=== PATIENT | male | born 1985 | race Hispanic/Latino ===

== ENCOUNTER 2020-02-11 21:33 | Emergency (ER) | payer OTHER, SELFPAY ==
[2020-02-11 22:00] VITALS: BP 187/63; PULSE 86; RESP 16; TEMP 36.9; O2SAT 98
--- NOTE | 2020-02-11 22:09 | ED.WOUNDLAC ---
HPI - Wound/Laceration General Chief Complaint: Wound/Laceration Stated Complaint: cut on arm Source: patient History of Present Illness HPI narrative: patient presents after he cut himself while at home with a superficial non gaping cut to his left elbow area. Occurred earlier today is up-to-date with his tetanus currently there is no bleeding no warmth no tenderness. Onset (ago): hour(s) Extremity Location: Left: elbow ( superficial cut) Place: home Context: accidental Associated symptoms: none Related Data Home Medications Medication Instructions Recorded Confirmed No Home Medications 07/18/19 07/18/19 Allergies Allergy/AdvReac Type Severity Reaction Status Date / Time No Known Allergies Allergy Verified 07/18/19 08:33 Review of Systems Review of Systems: All systems reviewed & are unremarkable except as noted in HPI and below PMFSH Past Medical History Medical History Lumbago with sciatica Skin abscess Syncope Surgical History Surgical History Hx of cholecystectomy Exam Const: General: no acute distress Orientation/consciousness: patient oriented x3 HENMT: Head: normal to inspection Eyes: Conjunctivae: conjunctivae normal Pupils: Equal, round and reactive pupils present EOM: EOMs intact bilaterally Neck: Neck: normal visual inspection Chest: Chest palpation & inspection: normal inspection of the chest Resp: Effort & Inspection: normal respiratory effort Auscultation: clear to auscultation bilaterally Cardio: Rate: regular rate Rhythm: regular rhythm GI: GI Palp: Yes Soft to palpation Auscultation: normal bowel sounds Back/Spine/Pelvis: Back: no CVA tenderness Skin: Other: Superficial cut on the left elbow Neuro: General: patient oriented x3 Extrem: General: normal to inspection Psych: Mental Status: mental status grossly normal Course Course Emergency Course: patient up-to-date with his tetanus patient is now need sutures were placed Neosporin on the cut area of his left elbow. Critical Care Time Critical Care Time Critical Care Time: No Discharge Plan Discharge Clinical Impression: Abrasion Patient Disposition: Home, Self-Care Condition: Stable Instructions: Antibiotic Form, Skin Avulsion (ED) Additional Instructions: Can apply Neosporin daily x3 days, follow-up with primary care physician if symptoms persist or worsen. Prescriptions: No Action No Home Medications RF: 0 Follow-up/Referrals: Noe Bearden MD [Primary Care Provider] - Time of Disposition: 22:11
[2020-02-11 22:31] VITALS: BP 141/85; PULSE 94; RESP 18; O2SAT 96
== END 2020-02-11 22:32 | disposition home or self-care (01) ==
PROVIDERS: Emergency Provider Emergency Medicine; PCP Family Medicine
DX: S50.312A Abrasion of left elbow, initial encounter (principal); W45.8XXA Other foreign body or object entering through skin, initial encounter
CPT/HCPCS: 99282

== ENCOUNTER 2020-04-16 13:18 | Emergency (ER) | payer OTHER, SELFPAY ==
--- NOTE | ~2020-04-16 | CT_ITS ---
EXAMINATION: CT hip LT wo con EXAM DATE: 04/16/2020 15:10 INDICATION: Left hip pain after fall. Pain with weightbearing. TECHNIQUE: Spiral CT hip LT wo con was performed left hip Axial, coronal and sagittal images were re viewed. The dose-length product (DLP) for this examination was 546.09 mGy-cm. The exposure was tail ored according to patient size (auto mA exposure control), and iterative reconstruction (ASIR) was us ed as additional dose reduction technique. There is no prior study for comparison. FINDINGS: There are no acute left hip fractures or dislocations identified. There is no subcutaneous gas. The soft tissue is unremarkable. There are no radiopaque foreign bodies. IMPRESSION: 1. Left hip CT exam without acute osseous findings. Reviewed, dictated and finalized at location B. EL ENGINE MECHANIC
--- NOTE | ~2020-04-16 | CT_ITS ---
EXAMINATION: CT lumbar spine wo [facility] EXAM DATE: 04/16/2020 15:10 INDICATION: fall, left hip pain fall last night, LBP, hip pain . TECHNIQUE: Spiral CT lumbar spine was performed without contrast. Axial, coronal and sagittal images of the lumbar spine were reviewed. The dose-length product (DLP) for this examination was 546.09 mGy- cm. The exposure was tailored according to patient size (auto mA exposure control), and iterative re construction (ASIR) was used as additional dose reduction technique. There is no prior study for jose thompson. FINDINGS: Mild to moderate disc disease L3-S1. There is no evidence of acute lumbar fracture. There is no disc space widening or traumatic vertebral body subluxation suspected. Paraspinal soft tissue is unremar kable. Mild to moderate right neural foraminal stenosis L4-5, less at the other number levels. The re is 2 mm retrolisthesis L4 on L5. The vertebral bodies are otherwise aligned. A detailed level by level evaluation of spondylosis can be added as addendum if requested. IMPRESSION: 1. Mild to moderate lower lumbar spondylosis. 2. No acute findings. Reviewed, dictated and finalized at location B. OR INSPECTOR
[2020-04-16 13:25] VITALS: BP 130/78; PULSE 100; RESP 20; TEMP 36.2; O2SAT 97
[2020-04-16] MEDS: ONDANSETRON INJ 4 MG/2 ML VIAL IV PUSH (13:50)
[2020-04-16] MEDS: HYDROmorphone HCL INJ (*CRX) 2 MG/ML VIAL 0.5 MG IV PUSH ×2 (13:50→14:09)
--- NOTE | 2020-04-16 13:54 | ED.LOWEXIN ---
HPI - Extremity Injury (Lower) General Chief Complaint: Extremity Injury, Lower Stated Complaint: felt 3 pops in left hip severe pain Time Seen by Provider: 04/16/20 13:54 Source: patient Mode of arrival: ambulatory Limitations: no limitations History of Present Illness HPI Narrative: 35-year-old man comes in today complaining of left hip pain particularly with weight-bearing that started yesterday. He was helping a neighbor with the door and to his ankle on the threshold causing him to fall. He states he felt 3 pops in addition to pain in his left hip. He has had pain with ambulation that is gotten worse over the last 24 hours. He denies any numbness or tingling except over the left lateral hip. He denies prior similar symptoms and he denies any other injuries. States he has a great deal of difficulty getting from a sitting to a standing position. MD complaint: hip injury Onset (ago): day(s) (1) Injury: Left: hip Type of Injury: unknown Place: home Severity: severe Relieving factors: nothing Exacerbating factors: weight bearing, movement and palpation Context: walking Associated symptoms: snap/pop sensation, numbness and able to partially bear weight Other symptoms: none Related Data Allergies Allergy/AdvReac Type Severity Reaction Status Date / Time No Known Allergies Allergy Verified 07/18/19 08:33 Review of Systems Constitutional: Constitutional: Denies chills and Denies fever(s) Eyes: Eyes: Denies change in vision and Denies photophobia ENT: Denies dysphagia, Denies nasal congestion and Denies sore throat Cardiovascular: Cardiovascular: Denies chest pain and Denies radiating jaw, neck or arm pain Respiratory: Respiratory: Denies cough and Denies dyspnea Gastrointestinal: Gastrointestinal: Denies abdominal pain, Denies diarrhea, Denies nausea and Denies vomiting Genitourinary: Genitourinary: Denies dysuria and Denies urinary frequency Musculoskeletal: Musculoskeletal: Denies back pain, Reports arthralgias and Denies joint swelling Integumentary/Breasts: Skin/Breast: Denies pruritus and Denies rash Neurologic: Denies vertigo, Denies dizziness and Denies syncope Hematologic/Lymphatic: Hematologic/Lymphatic: Denies easy bleeding and Denies easy bruising Allergic/Immunologic: Allergic/Immunologic: Denies lip swelling and Denies tongue swelling [facility] Past Medical History Medical History (Updated 04/16/20 @ 15:26 by Wily Bush MD) Lumbago with sciatica Skin abscess Syncope Surgical History Surgical History Hx of cholecystectomy Social History Social History (Updated 04/16/20 @ 14:29 by Wily Bush MD) Smoking status: Current every day smoker Alcohol intake: never Substance use: current Substance use type: marijuana Living arrangements: with family Exam Const: General: healthy appearing and alert Nutritional Appearance: obese Orientation/consciousness: patient oriented x3 Other: Moderate to severe acute distress. Eyes: Conjunctivae: conjunctivae normal Pupils: Equal, round and reactive pupils present EOM: EOMs intact bilaterally Resp: Effort & Inspection: normal respiratory effort and not labored Auscultation: clear to auscultation bilaterally, no rales, no rhonchi and no wheezes Cardio: Rate: regular rate Rhythm: regular rhythm Heart sounds: no murmurs Skin: General skin exam: normal color, no jaundice and no pallor Rashes: no rashes Neuro: General: patient oriented x3, moves all extremities, no focal motor deficits and CN's II-XI intact bilaterally Speech: normal speech Extrem: General: normal to inspection and no clubbing, cyanosis or edema Other: Patient has pain with internal external rotation left hip. Patient is unable to flex it. No tenderness, swelling or erythema of the left knee, left ankle and the distal neurovascular exam is intact on left. Right leg hip and knee is normal. Psych:
[2020-04-16 15:01] VITALS: BP 135/74; PULSE 89; RESP 20; O2SAT 98
[2020-04-16 15:29] VITALS: BP 121/67; PULSE 97; RESP 18; TEMP 36.9; O2SAT 98
== END 2020-04-16 15:34 | disposition home or self-care (01) ==
PROVIDERS: Emergency Provider Emergency Medicine; PCP Nurse Practitioner Family
DX: S76.812A Strain of other specified muscles, fascia and tendons at thigh level, left thigh, initial encounter (principal); W19.XXXA Unspecified fall, initial encounter
CPT/HCPCS: 72131; 73700; 96374; 96375; 99283; 99284; J1170; J2405

== ENCOUNTER 2020-04-20 18:11 | Observation (INO) | payer OTHER, SELFPAY ==
--- NOTE | ~2020-04-20 | CT_ITS ---
EXAMINATION: CT abdomen pelvis w con DATE: 04/20/2020 19:45 INDICATION: Mid abdominal pain. TECHNIQUE: Computed tomography (CT) of the abdomen and pelvis was performed with 100 mL Omnipaque 350 on intravenous contrast. Automated exposure control and iterative reconstruction technique were empl oyed. The dose-length product was 1571.78 mGy-cm. COMPARISON: CT abdomen and pelvis 03/12/2019 FINDINGS: The visualized portions of the lung bases demonstrate mild atelectasis. No pleural effusion . The heart size is normal. No pericardial effusion. The liver and spleen are normal. There are márquez es of cholecystectomy. The pancreas and adrenal glands are normal. There are cysts in the kidneys jacqueline suring up to 9 mm on the left. There are no dilated loops of bowel. The appendix is normal. There are no pathologically enlarged lymph nodes. There is no free intraperitoneal fluid. There is a supraumbi lical ventral hernia containing fat. There is mild thoracolumbar spondylosis. IMPRESSION: 1. Supraumbilical ventral hernia containing fat. Reviewed, dictated and finalized at location A. [employer] SPECIAL AGENT
[2020-04-20 18:15] VITALS: BP 125/78; PULSE 83; RESP 17; TEMP 36.9; O2SAT 98
[2020-04-20] MEDS: HYDROmorphone HCL INJ (*CRX) 2 MG/ML VIAL 1 MG IV PUSH (18:24)
[2020-04-20] MEDS: ONDANSETRON INJ 4 MG/2 ML VIAL IV PUSH (18:25)
[2020-04-20 18:39] LABS: Add Urine Microscopic? YES; Appearance Urine Clear (Clear); Bilirubin Urine Negative (Negative); Blood Urine Negative (Negative); Color Urine Yellow (Yellow); Glucose Urine UA Negative (Negative); Ketones Urine Negative (Negative); Leukocyte Esterase Ur Negative LEU/UL (Negative); Nitrate Urine Negative (Negative); Protein Urine Trace (Negative); Urobilinogen Urine 0.2 mg/dL (0.2-1.0); pH Urine >=9.0 (5.0-8.0)
[2020-04-20 19:04] LABS: Basophils Absolute Auto 0.03 K/mm3 (0.00-0.10); Basophils Percent Auto 0.3 % (0.0-1.0); Eosinophils Absolute Auto 0.08 K/mm3 (0.02-0.50); Eosinophils Percent Auto 0.8 % (1.0-6.0); Hematocrit 47.5 % (40.0-54.0); Hemoglobin 15.8 g/dL (14.0-18.0); Immature Granulocyte Absolute 0.04 K/mm3 (0.00-0.00); Immature Granulocyte Percent A 0.4 % (0.0-0.0); Lymphocytes Absolute Auto 1.67 K/mm3 (1.10-4.50); Lymphocytes Percent Auto 17.4 % (18.0-42.0); Mean Corpuscular HGB Conc 33.3 g/dL (32.0-36.0); Mean Corpuscular Hemoglobin 29.7 pg (27.0-31.0); Mean Corpuscular Volume 89.3 fL (78.0-102.0); Mean Platelet Volume 10.3 fl (8.7-11.0); Monocytes Percent Auto 5.2 % (2.0-11.0); Neutrophils Absolute Auto 7.3 K/mm3 (1.7-7.2); Neutrophils Percent Auto 75.9 % (50.0-70.0); Platelet Count Result 320 K/mm3 (150-420); Red Blood Count 5.32 M/mm3 (4.70-6.10); White Blood Count 9.6 K/mm3 (4.8-10.8)
[2020-04-20 19:05] LABS: Bacteria Urine Trace /hpf; RBC Urine 0-2 /hpf (0-2); Squamous Epithelial Cell Urine Rare /hpf (Few); WBC Urine 0-3 /hpf (0-3)
[2020-04-20] MEDS: PROMETHAZINE HCL 25 MG/ML AMPUL 12.5 MG IV PUSH (19:05)
[2020-04-20 19:21] LABS: Alanine Aminotransferase 58 U/L (16-63); Albumin Level 3.5 g/dL (3.4-5.0); Alkaline Phosphatase 104 U/L (46-116); Amylase 35 U/L (25-115); Anion Gap 9 mmol/L (8-16); Aspartate Amino Transferase 25 U/L (15-37); Bilirubin,Total 0.4 mg/dL (0.00-1.00); Blood Urea Nitrogen 12 mg/dL (7-18); Calcium 8.8 mg/dL (8.5-10.1); Carbon Dioxide 29 mmol/L (21-32); Chloride 103 mmol/L (98-108); Estimated Glomerular Filt Rate > 60; Glucose 101 mg/dL (70-99); Lipase 49 U/L (73-393); Osmolality Calculated 291 mOsm/kg (285-295); Potassium 3.5 mmol/L (3.5-5.1); Sodium 141 mmol/L (136-145); Total Protein 7.3 g/dL (6.4-8.2)
[2020-04-20] MEDS: KETOROLAC 30 MG/ML VIAL (*BKC) IV PUSH ×2 (19:50→23:37)
[2020-04-20] MEDS: MAG HYDROX/ALUMINUM HYD/SIMETH 30 ML, PHENobarb/HYOSCY/ATROPINE/SCOP 32.4 MG, LIDOCAINE... PO (20:30)
[2020-04-20] MEDS: DICYCLOMINE HCL 10 MG CAPSULE 20 MG PO (20:59)
--- NOTE | 2020-04-20 21:00 | PC.NURSE ---
ERP TO BEDSIDE TO DISCUSS NEGATIVE FINDINGS - PT SUGGESTS HE STILL BE TRANSFERRED TO [facility]
[2020-04-20 21:06] LABS: Amphetamine Screen Urine Negative (Negative); Barbiturate Screen Urine Negative (Negative); Benzodiazepines Screen Urine Negative (Negative); Cannabinoid Screen Urine Positive (Negative); Cocaine Screen Urine Negative (Negative); Methadone Screen Urine Negative (Negative); Opiate Screen Urine Positive (Negative); Phencyclidine Screen Urine Negative (Negative)
--- NOTE | 2020-04-20 21:46 | ED.ABDPAIN ---
HPI - Abdominal Pain General Chief Complaint: Abdominal Pain Stated Complaint: unknown Source: patient and family Mode of arrival: ambulatory Limitations: no limitations History of Present Illness MD elicited complaint: abdominal pain Pertinent past history: other (episodes like this in t he past, which he insists were due to pancreatitis ) Onset (ago): day(s) (3) Pain Consistency: intermittent Location: diffuse Severity: similar to previous episodes Pain scale (0-10): 10 Quality: cramping Radiation: none Exacerbating factors: other (walking makes this worse) Relieving factors: rest Treatments prior to arrival: other (cannabis) Related Data Home Medications Medication Instructions Recorded Confirmed No Home Medications 04/20/20 04/20/20 Allergies Allergy/AdvReac Type Severity Reaction Status Date / Time No Known Allergies Allergy Verified 07/18/19 08:33 Review of Systems Review of Systems: All systems reviewed & are unremarkable except as noted in HPI and below Constitutional: Constitutional: Reports no additional constitutional complaints Eyes: Eyes: Reports no additional eye complaints ENT: Reports system reviewed and no additional complaints, except as documented Cardiovascular: Cardiovascular: Reports no additional cardiovascular complaints Respiratory: Respiratory: Reports no additional respiratory complaints Gastrointestinal: Gastrointestinal: Reports no additional gastrointestinal complaints Genitourinary: Genitourinary: Reports no additional male genitourinary complaints Musculoskeletal: Musculoskeletal: Reports no additional musculoskeletal complaints Integumentary/Breasts: Skin/Breast: Reports system reviewed and no additional complaints, except as docu Neurologic: Reports system reviewed and no additional complaints, except as documented Psychiatric: Psychiatric: Reports no additional psychiatric complaints Endocrine: Endocrine: Reports no additional endocrine complaints Hematologic/Lymphatic: Hematologic/Lymphatic: Reports no additional hematologic/lymphatic complaints Allergic/Immunologic: Allergic/Immunologic: Reports no additional allergic/immunologic complaints [facility] Past Medical History Medical History (Updated 04/20/20 @ 22:45 by Rufino Hernández MD) Lumbago with sciatica Skin abscess Syncope Surgical History Surgical History Hx of cholecystectomy Family History Family History (Updated 04/20/20 @ 22:35 by Rufino Hernández MD) Mother COPD (chronic obstructive pulmonary disease) Social History Social History (Updated 04/16/20 @ 14:29 by Wily Bush MD) Smoking packs per day: 1 Smoking cigarettes per day: 20.0 Years smoked: 20 Smoking pack-years: 20.00 Smoking status: Heavy tobacco smoker Tobacco type: cigarettes Alcohol intake: former Substance use: current Substance use type: marijuana Gender identity (if verbalized by the patient): Male Sexual Orientation (if Verbalized by the Patient): Straight or Heterosexual Spiritual care concerns: No Exam Narrative: Exam Narrative: appears uncomfortable Const: General: no acute distress HENMT: Head: normal to inspection Face and sinus: normal facial exam Eyes: Conjunctivae: conjunctivae normal Chest: Chest palpation & inspection: normal inspection of the chest Resp: Effort & Inspection: normal respiratory effort Auscultation: clear to auscultation bilaterally Cardio: Rate: regular rate Rhythm: regular rhythm GI: GI Palp: Yes Soft to palpation Other: mild tenderness to percussion in left upper abcomen Back/Spine/Pelvis: Back: no CVA tenderness Skin: General skin exam: normal color Neuro: General: moves all extremities Speech: normal speech Extrem: General: normal to inspection Psych: Appearance: grossly normal Mental Status: mental status grossly normal Thought content: Yes Normal thought content present Cour
[2020-04-20 22:20] VITALS: BP 102/56; PULSE 87; O2SAT 96
[2020-04-20 22:35] VITALS: BP 104/72; PULSE 70; RESP 14; TEMP 36.4; O2SAT 100
[2020-04-20 22:41] VITALS: BMI 42.3
--- NOTE | 2020-04-20 22:44 | ADMIMU ---
This patient, Mitesh Jerome, was admitted to IMU status, and placed in 2nd Floor Room 227-1. Patient/family oriented to hospital policies and general routines including ID bracelet, bed and alarms, visiting hours, pain management, procedures, bathroom and other care routines, personal items, smoking policy, room service/diet, and visiting hours. Valuables list has been completed. Information on how to activate the Rapid Response Team has been discussed. Patient/Family are encouraged to report perceived risks to care and to ask questions if they do not understand what they are told or what they should do.
[2020-04-20] MEDS: SODIUM CHLORIDE 0.9% IV 1,000 ML 100 ML IV CONT (23:20)
[2020-04-20] MEDS: PANTOPRAZOLE SODIUM IV 40 MG VIAL IV PUSH (23:37)
--- NOTE | 2020-04-20 23:45 | PC.NURSE ---
administered IVP protonix and toradol as order. fluids running. no emesis.
--- NOTE | 2020-04-21 00:50 | PC.NURSE ---
Patient resting. Snoring. Call light in reach. Pain level 0 on FLACC.
--- NOTE | 2020-04-21 02:45 | PC.NURSE ---
Patient appears to be resting. no nausea or emesis. Pain 0 on FLACC.
--- NOTE | 2020-04-21 03:45 | PC.NURSE ---
Patient resting. pump sounding with occlusion-patient still sleeping had to wake to reposition IV no nausea or emesis. pain rated at 6
[2020-04-21] MEDS: KETOROLAC 30 MG/ML VIAL (*BKC) IV PUSH ×4 (05:39→23:58)
--- NOTE | 2020-04-21 05:56 | PC.NURSE ---
Scheduled toradol given. denies nausea.
[2020-04-21 06:00] VITALS: BP 123/77; PULSE 57; RESP 14; TEMP 36.5; O2SAT 100
[2020-04-21 06:30] LABS: Anion Gap 6 mmol/L (8-16); Blood Urea Nitrogen 14 mg/dL (7-18); Calcium 8.7 mg/dL (8.5-10.1); Carbon Dioxide 32 mmol/L (21-32); Chloride 104 mmol/L (98-108); Estimated CRCL calculation 143 ml/min; Estimated Glomerular Filt Rate > 60; Glucose 93 mg/dL (70-99); Osmolality Calculated 294 mOsm/kg (285-295); Potassium 3.8 mmol/L (3.5-5.1); Sodium 142 mmol/L (136-145)
--- NOTE | 2020-04-21 07:32 | PM.IMHP ---
H&P: HPI History of Present Illness Date/Time: 04/21/20 07:32 <JUAN Hough - Last Filed: 04/21/20 14:02> Chief complaint: Cyclic Vomiting syndrome/Cannabis Hyperemesis Synd <JUAN Hough - Last Filed: 04/21/20 14:02> Narrative: Mitesh Jerome is a 35 year old male who states that he has pancreatitis in the past. He states pancreatitis is triggered by spicy food and admits that over the weekend from he was enjoying some meals that had increased spices in them. This morning patient complains of epigastric pain left upper quadrant pain and the need to vomit which resulted in just dry heaves. ER report says patient was given Dilaudid which did nothing for the patient's pain however Toradol did work. Patient does find some relief with his nausea medication. Patient denies any chest pain difficulty breathing at this time. <JUAN Hough - Last Filed: 04/21/20 14:02> Review of Systems Constitutional: Constitutional: Reports no additional constitutional complaints and Reports other (patient admits to smoking marijuana daily) <JUAN Hough - Last Filed: 04/21/20 14:02> Cardiovascular: Cardiovascular: Reports no additional cardiovascular complaints, Denies chest pain at rest and Denies chest pain with activity <JUAN Hough - Last Filed: 04/21/20 14:02> Respiratory: Respiratory: Reports no additional respiratory complaints, Denies dyspnea and Denies dyspnea on exertion <JUAN Hough - Last Filed: 04/21/20 14:02> Gastrointestinal: Gastrointestinal: Reports abdominal pain (Epigastric to left upper quadrant) and Reports nausea <JUAN Hough - Last Filed: 04/21/20 14:02> Neurologic: Reports system reviewed and no additional complaints, except as documented, Denies dizziness, Denies syncope, Denies headache(s) and Denies lack of coordination <JUAN Hough - Last Filed: 04/21/20 14:02> PMFSH Past Medical History Medical History: Medical History Lumbago with sciatica Skin abscess Syncope <JUAN Hough - Last Filed: 04/21/20 14:02> Surgical History Surgical History: Surgical History Hx of cholecystectomy <JUAN Hough - Last Filed: 04/21/20 14:02> Family History Family History: Family History Mother COPD (chronic obstructive pulmonary disease) <JUAN Hough - Last Filed: 04/21/20 14:02> Social History Social History: Social History Smoking packs per day: 1 Smoking cigarettes per day: 20.0 Years smoked: 20 Smoking pack-years: 20.00 Smoking status: Heavy tobacco smoker Tobacco type: cigarettes Alcohol intake: former Substance use: current Substance use type: marijuana Gender identity (if verbalized by the patient): Male Sexual Orientation (if Verbalized by the Patient): Straight or Heterosexual Spiritual care concerns: No <JUAN Hough - Last Filed: 04/21/20 14:02> Meds Home Medications and Allergies Home medications: Home Medications Medication Instructions Recorded Confirmed Type No Home Medications 04/20/20 04/20/20 History <JUAN Hough - Last Filed: 04/21/20 14:02> Allergies/Adverse reactions: Allergies Allergy/AdvReac Type Severity Reaction Status Date / Time No Known Allergies Allergy Verified 07/18/19 08:33 <JUAN Hough - Last Filed: 04/21/20 14:02> Vital Signs Vital Signs - 24 hr 04/20/20 18:15 04/20/20 22:20 04/20/20 22:35 Temperature 98.5 F 97.6 F Pulse Rate 83 87 70 Respiratory Rate 17 14 Blood Pressure 125/78 102/56 L 104/72 Pulse Oximetry 98 96 100 04/21/20 06:00 Temperature 97.7 F Pulse Rate 57 L Respiratory Rate
[2020-04-21] MEDS: ONDANSETRON INJ 4 MG/2 ML VIAL IV PUSH ×3 (08:24→21:53)
[2020-04-21] MEDS: HYDROmorphone HCL INJ (*CRX) 2 MG/ML VIAL 0.5 MG IV PUSH (09:26)
[2020-04-21] MEDS: PROMETHAZINE HCL 25 MG/ML AMPUL 12.5 MG IV PUSH ×2 (12:11→18:27)
--- NOTE | 2020-04-21 12:15 | PC.NURSE ---
Phenergan 12.5 mg given diluted for nausea, no emesis noted
[2020-04-21 14:00] VITALS: BP 106/66; PULSE 72; RESP 14; TEMP 36.6; O2SAT 99
--- NOTE | 2020-04-21 14:08 | PC.NURSE ---
Patient getting short time relief from pain med and nausea med. SEE JUL. IV fluids continue as ordered. Reports voiding well. Sleeping off and between meds given. Didn't eat any of his clear liquid lunch.
[2020-04-21 16:15] VITALS: BP 141/86; PULSE 59; RESP 18; TEMP 36.8; O2SAT 98
[2020-04-21] MEDS: PANTOPRAZOLE 40 MG TABLET PO (18:27)
--- NOTE | 2020-04-21 19:33 | PM.EVENT ---
Event Note Event Note Event Note: I have examined the patient and reviewed the chart. I discussed the patient's care with Davian Winn APN and agree with his assessment and plan.
[2020-04-21] MEDS: SODIUM CHLORIDE 0.9% IV 1,000 ML 100 ML IV CONT (19:48)
[2020-04-22] VITALS: BP 119/69; PULSE 77; RESP 18; TEMP 36.9; O2SAT 98
[2020-04-22] MEDS: ONDANSETRON INJ 4 MG/2 ML VIAL IV PUSH ×2 (00:01→06:01)
--- NOTE | 2020-04-22 02:35 | PC.NURSE ---
pt sleeping, no distress noted, iv fluids infusing per order
[2020-04-22] MEDS: SODIUM CHLORIDE 0.9% IV 1,000 ML 100 ML IV CONT (05:59)
[2020-04-22] MEDS: KETOROLAC 30 MG/ML VIAL (*BKC) IV PUSH (06:00)
[2020-04-22 06:03] LABS: Basophils Absolute Auto 0.02 K/mm3 (0.00-0.10); Basophils Percent Auto 0.3 % (0.0-1.0); Eosinophils Percent Auto 1.5 % (1.0-6.0); Hematocrit 44.5 % (40.0-54.0); Hemoglobin 14.5 g/dL (14.0-18.0); Immature Granulocyte Absolute 0.03 K/mm3 (0.00-0.00); Immature Granulocyte Percent A 0.4 % (0.0-0.0); Lymphocytes Percent Auto 29.2 % (18.0-42.0); Mean Corpuscular HGB Conc 32.6 g/dL (32.0-36.0); Mean Platelet Volume 10.1 fl (8.7-11.0); Monocytes Absolute Auto 0.55 K/mm3 (0.10-0.90); Neutrophils Absolute Auto 4.2 K/mm3 (1.7-7.2); Neutrophils Percent Auto 60.6 % (50.0-70.0); Platelet Count Result 303 K/mm3 (150-420); Red Cell Distribution Width 12.7 % (11.6-14.4); White Blood Count 6.9 K/mm3 (4.8-10.8)
[2020-04-22 06:19] LABS: Alanine Aminotransferase 71 U/L (16-63); Albumin Level 3.2 g/dL (3.4-5.0); Alkaline Phosphatase 104 U/L (46-116); Anion Gap 7 mmol/L (8-16); Aspartate Amino Transferase 27 U/L (15-37); Bilirubin,Total 0.7 mg/dL (0.00-1.00); Blood Urea Nitrogen 11 mg/dL (7-18); Calcium 8.5 mg/dL (8.5-10.1); Carbon Dioxide 30 mmol/L (21-32); Chloride 103 mmol/L (98-108); Estimated CRCL calculation 151 ml/min; Estimated Glomerular Filt Rate > 60; Glucose 92 mg/dL (70-99); Lipase 296 U/L (73-393); Osmolality Calculated 289 mOsm/kg (285-295); Potassium 3.7 mmol/L (3.5-5.1); Sodium 140 mmol/L (136-145); Total Protein 6.8 g/dL (6.4-8.2)
[2020-04-22 07:45] VITALS: BP 119/67; PULSE 65; RESP 18; TEMP 36.2; O2SAT 94
--- NOTE | 2020-04-22 10:44 | P.DS_ITS ---
DS: Admitting Diagnosis Admitting Diagnosis Admitting Diagnosis: Cyclic Vomiting syndrome/Cannabis Hyperemesis Synd <Jarrell MattaKEILY Valente - Last Filed: 04/22/20 10:53> DS: Discharge Diagnosis Discharge Diagnosis (1) Cannabis hyperemesis syndrome concurrent with and due to cannabis abuse: Code(s): F12.188 - Cannabis abuse with other cannabis-induced disorder <Mikejeanne SigridKEILY Valente - Last Filed: 04/22/20 10:53> Status: Acute <Jarrell MattaKEILY Valente - Last Filed: 04/22/20 10:53> Assessment and Plan: * Result * Patient able to tolerate meals * Will discharge home with Zofran and Reglan * Will follow her primary care physician * Educated on cessation <KEILY Mcmahon - Last Filed: 04/22/20 10:53> (2) Nausea and vomiting: Code(s): R11.2 - Nausea with vomiting, unspecified <KEILY Mcmahon - Last Filed: 04/22/20 10:53> Status: Acute <Mikejeanne MattaKEILY Valente - Last Filed: 04/22/20 10:53> Assessment and Plan: * Resolved * Secondary to cannabis use * Discharged home with Zofran and Reglan <KEILY Mcmahon - Last Filed: 04/22/20 10:53> (3) Addiction, marijuana: Code(s): F12.20 - Cannabis dependence, uncomplicated <Mikejeanne SigridKEILY Valente - Last Filed: 04/22/20 10:53> Status: Acute <Jarrell SigridKEILY Valente - Last Filed: 04/22/20 10:53> Assessment and Plan: * Educated on cessation <KEILY Mcmahon - Last Filed: 04/22/20 10:53> (4) Dehydration: Code(s): E86.0 - Dehydration <Jarrell SigridKEILY Valente - Last Filed: 04/22/20 10:53> Status: Acute <KEILY Mcmahon - Last Filed: 04/22/20 10:53> Assessment and Plan: * Secondary to nausea and vomiting * Resolved * Patient received IV fluids while inpatient <Jarrell MeredithKEILY - Last Filed: 04/22/20 10:53> DS: Summary Time Spent with Patient Time attestation: Total time spent providing and/or coordinating discharge services:60 <Jarrell MeredithKEILY - Last Filed: 04/22/20 10:53> Exam Narrative: Exam Narrative: GENERAL: This is a well-nourished, well-developed patient, in no apparent distress. HEAD: normocephalic, atraumatic. EYES: PERRL. Sclera clear/white. Vision is grossly intact. EARS: External ears normal, auditory canals clear and without drainage, TMs normal without perforation. Hearing grossly intact. NOSE: External nose normal with no obvious nasal discharge, nares without redness, no rhinorrhea. THROAT: Mucous membranes moist, posterior pharynx clear. NECK: Neck supple, non-tender without lymphadenopathy, masses or thyromegaly. CARDIOVASCULAR: Regular rate and rhythm without murmurs, gallops, or rubs. RESPIRATORY: Clear to auscultation. Breath sounds equal bilaterally. No wheezes, rales, or rhonchi. GASTROINTESTINAL: Abdomen soft, non-tender, nondistended. Bowel sounds are active. No hepato-splenomegaly, or palpable masses. No guarding. SKIN: warm, intact with no suspicious lesions or rash, good texture and turgor. NEURO: awake, alert, and oriented to person, place and time. There were no obvious focal neurologic abnormalities. Steady gait EXTREMITIES: Normal range of motion. No edema. No calf tenderness. Negative Homans sign bilaterally. BACK: Nontender without deformity or crepitance. No flank tenderness. <Jarrell MeredithKEILY - Last Filed: 04/22/20 10:53> DS: Data Data Completed and Pending Labs on day of discharge: Labs from last 24 hours 04/22/20 04/22/20
--- NOTE | 2020-04-22 10:44 | PM.DS ---
DS: Admitting Diagnosis Admitting Diagnosis Admitting Diagnosis: Cyclic Vomiting syndrome/Cannabis Hyperemesis Synd <KEILY Mcmahon - Last Filed: 04/22/20 10:53> DS: Discharge Diagnosis Discharge Diagnosis (1) Cannabis hyperemesis syndrome concurrent with and due to cannabis abuse: Code(s): F12.188 - Cannabis abuse with other cannabis-induced disorder <KEILY Mcmahon - Last Filed: 04/22/20 10:53> Status: Acute <KEILY Mcmahon - Last Filed: 04/22/20 10:53> Assessment and Plan: Result Patient able to tolerate meals Will discharge home with Zofran and Reglan Will follow her primary care physician Educated on cessation <KEILY Mcmahon - Last Filed: 04/22/20 10:53> (2) Nausea and vomiting: Code(s): R11.2 - Nausea with vomiting, unspecified <KEILY Mcmahon - Last Filed: 04/22/20 10:53> Status: Acute <SADIE McmahonC - Last Filed: 04/22/20 10:53> Assessment and Plan: Resolved Secondary to cannabis use Discharged home with Zofran and Reglan <KEILY Mcmahon - Last Filed: 04/22/20 10:53> (3) Addiction, marijuana: Code(s): F12.20 - Cannabis dependence, uncomplicated <KEILY Mcmahon - Last Filed: 04/22/20 10:53> Status: Acute <KEILY Mcmahon - Last Filed: 04/22/20 10:53> Assessment and Plan: Educated on cessation <SADIE McmahonC - Last Filed: 04/22/20 10:53> (4) Dehydration: Code(s): E86.0 - Dehydration <KEILY Mcmahon - Last Filed: 04/22/20 10:53> Status: Acute <SADIE McmahonC - Last Filed: 04/22/20 10:53> Assessment and Plan: Secondary to nausea and vomiting Resolved Patient received IV fluids while inpatient <GRACIELA Mcmahon-C - Last Filed: 04/22/20 10:53> DS: Summary Time Spent with Patient Time attestation: Total time spent providing and/or coordinating discharge services:60 <Jarrell MeredithKEILY - Last Filed: 04/22/20 10:53> Exam Narrative: Exam Narrative: GENERAL: This is a well-nourished, well-developed patient, in no apparent distress. HEAD: normocephalic, atraumatic. EYES: PERRL. Sclera clear/white. Vision is grossly intact. EARS: External ears normal, auditory canals clear and without drainage, TMs normal without perforation. Hearing grossly intact. NOSE: External nose normal with no obvious nasal discharge, nares without redness, no rhinorrhea. THROAT: Mucous membranes moist, posterior pharynx clear. NECK: Neck supple, non-tender without lymphadenopathy, masses or thyromegaly. CARDIOVASCULAR: Regular rate and rhythm without murmurs, gallops, or rubs. RESPIRATORY: Clear to auscultation. Breath sounds equal bilaterally. No wheezes, rales, or rhonchi. GASTROINTESTINAL: Abdomen soft, non-tender, nondistended. Bowel sounds are active. No hepato-splenomegaly, or palpable masses. No guarding. SKIN: warm, intact with no suspicious lesions or rash, good texture and turgor. NEURO: awake, alert, and oriented to person, place and time. There were no obvious focal neurologic abnormalities. Steady gait EXTREMITIES: Normal range of motion. No edema. No calf tenderness. Negative Homans sign bilaterally. BACK: Nontender without deformity or crepitance. No flank tenderness. <Jarrell MeredithKEILY - Last Filed: 04/22/20 10:53> DS: Data Data Completed and Pending Labs on day of discharge: Labs from last 24 hours 04/22/20 04/22/20 05:25 05:25 WBC 6.9 RBC 5.00 Hgb 14.5 Hct 44.5 MCV 89.0 MCH 29.0 MCHC 32.6 RDW 12.7 Plt Count 303 MPV 10.1 Immature Gran % (Auto) 0.4 H Neut % (Auto) 60.6 Lymph % (Auto) 29.2 [place]ancock % (Auto) 8.0 Eos % (Auto) 1.5 Baso % (Auto) 0.3 Lymph # (Auto) 2.00 [place] # (Auto) 0.55 Eos # (Auto) 0.10 Baso # (Auto) 0.02 Abs Immat Gran (auto) 0.03 H Absolute Neuts
--- NOTE | 2020-04-22 12:00 | PC.NURSE ---
Nurse went into room to deliver lunch tray. Patient was not in room. Patient had taken out own IV and left premesis. Pt. did not receive any discharge instructions due to leaving without notifying nurse. GREG Vieyra notified.
--- NOTE | 2020-04-25 14:36 | PC.NURSE ---
Unable to contact for discharge call back.
== END 2020-04-22 12:00 | disposition home or self-care (01) ==
LOC: CHSED 18:13 → CHS2ND 22:21
PROVIDERS: Emergency Medicine; Admitting Provider Emergency Medicine; Emergency Provider Emergency Medicine; Visit Provider Emergency Medicine
DX: R11.10 Vomiting, unspecified (principal); F12.90 Cannabis use, unspecified, uncomplicated; E86.0 Dehydration; M54.40 Lumbago with sciatica, unspecified side; F17.210 Nicotine dependence, cigarettes, uncomplicated; Z90.49 Acquired absence of other specified parts of digestive tract
CPT/HCPCS: 36415; 74177; 80048; 80053; 80307; 81001; 82150; 83690; 85025; 96361; 96374; 96375; 96376; 99285; A9270; C9113; G0378; J1170; J1885; J2405; J2550; J7030; Q9965

== ENCOUNTER 2020-07-30 08:05 | Outpatient (CLI) | payer OTHER, SELFPAY ==
--- NOTE | ~2020-07-30 | MR_ITS ---
EXAMINATION: MR hip LT wo con DATE: 07/30/2020 09:22 INDICATION: Left hip pain. TECHNIQUE: Magnetic resonance imaging (MRI) of the left hip was performed without intravenous contras t. Sequences included axial and coronal PD-weighted FS FSE and axial T1-weighted FSE of the pelvis. S equences of the hip included 2D FIESTA, T1-weighted fast GRE, and axial, coronal, and sagittal PD-brigido ghted FS FSE. COMPARISON: Left hip CT 04/16/2020 FINDINGS: Bones/cartilage: Bone alignment is normal. No fracture. There are dysplastic bumps at the femoral head/neck junctions anterosuperiorly, which may be seen with femoral acetabular impingement. Left hip joint demonstrates partial thickness cartilage loss posteriorly and anterosuperiorly. There are small subchondral cysts in left acetabulum. Labrum: The left acetabular labrum is intact. Fluid: There is no hip joint effusion. There is mild bilateral trochanteric bursitis. Soft tissues: There is mild tendinopathy of the hamstring origins bilaterally. There is mild tendinopathy of left g luteus minimus tendon. The gluteus medius tendon is normal. The right-sided gluteal tendons are fredy l. The iliopsoas tendons are normal. IMPRESSION: 1. Mild left hip chondrosis. 2. Dysplastic bumps at the femoral head/neck junctions anterosuperiorly, which may be seen with femor al acetabular impingement. Reviewed, dictated and finalized at [facility]. [employer] [employer] [facility] IMPRESSION: 1. Mild left hip chondrosis. 2. Dysplastic bumps at the femoral head/neck junctions anterosuperiorly, which may be seen with femoral acetabular impingement.
== END 2020-07-30 08:06 | disposition home or self-care (01) ==
LOC: CHSIMG 08:07
PROVIDERS: PCP Nurse Practitioner Family; Visit Provider Nurse Practitioner Family
DX: M25.552 Pain in left hip (principal)
CPT/HCPCS: 73721

== ENCOUNTER 2020-08-11 15:43 | Inpatient (IN) | payer OTHER, SELFPAY ==
--- NOTE | ~2020-08-11 | CT_ITS ---
EXAMINATION: CT abdomen pelvis w con DATE: 08/11/2020 17:10 INDICATION: Mild generalized abdominal pain and nausea and vomiting for 48 hours. TECHNIQUE: Computed tomography (CT) of the abdomen and pelvis was performed with 100 cc Omnipaque 350 intravenous contrast. Automated exposure control and iterative reconstruction technique were employe d. Exam dose: 1620.69 mGy-cm total exam DLP. COMPARISON: 03/12/2019 CT abdomen pelvis FINDINGS: The lung bases are clear of infiltrate or consolidation. Normal heart size. No pericardial or pleural effusion. Status post cholecystectomy. Hepatic steatosis. No hepatic, splenic, pancreatic, and adrenal or solid renal space-occupying mass lesion is evident. Occasional bilateral subcentimeter renal cysts. No urinary tract calculus or hydroureteronephrosis. The urinary bladder, prostate gland and seminal v esicles appear normal. Normal caliber of the abdominal aorta. No intraperitoneal or retroperitoneal or pelvic mass lesion or adenopathy or ascites. Borderline dilated proximal and mid mid small bowel segments with fluid are noted, without transition point. No bowel wall thickening, pneumatosis or intraperitoneal free air. Normal appendix. The colon is unremarkable, without obstruction or bowel wall thickening. IMPRESSION: Borderline dilatation of proximal to mid small bowel without apparent obstruction. Consi dianna enteritis, mild adynamic ileus Normal appendix Status post cholecystectomy Hepatic steatosis Occasional subcentimeter renal cysts Reviewed, dictated and finalized at [facility]. Reviewed, dictated and finalized at [facility]. IMPRESSION: Borderline dilatation of proximal to mid small bowel without appar ent obstruction. Consider enteritis, mild adynamic ileus Normal appendix Status post cholecystectomy Hepatic steatosis Occasional subcentimeter renal cysts
--- NOTE | 2020-08-11 15:55 | ECG_ITS ---
Measurements Intervals [place] Rate: 55 P: 33 TN: 189 QRS: 7 QRSD: 109 T: 61 QT: 466 QTc: 446 Interpretive Statements SINUS BRADYCARDIA WITH MARKED SINUS ARRHYTHMIA EARLY PRECORDIAL R/S TRANSITION BORDERLINE ECG Electronically Signed On 08-11-2020 16:41:30 CDT by Trace Ashley D.O.
[2020-08-11 16:08] VITALS: BP 130/89; PULSE 70; RESP 16; TEMP 36.4; O2SAT 98
[2020-08-11] MEDS: MORPHINE SULFATE (*CRX) 4 MG/ML INJ IV PUSH (16:18)
[2020-08-11] MEDS: SODIUM CHLORIDE 0.9% IV 1,000 ML 999 ML IV CONT (16:19)
[2020-08-11] MEDS: ONDANSETRON INJ 4 MG/2 ML VIAL IV PUSH ×2 (16:19→19:19)
--- NOTE | 2020-08-11 16:19 | PC.NURSE ---
fluids started by ambulance, cont in ED
[2020-08-11 16:34] LABS: Basophils Absolute Auto 0.03 K/mm3 (0.00-0.10); Basophils Percent Auto 0.3 % (0.0-1.0); Eosinophils Absolute Auto 0.01 K/mm3 (0.02-0.50); Eosinophils Percent Auto 0.1 % (1.0-6.0); Hemoglobin 15.3 g/dL (14.0-18.0); Immature Granulocyte Absolute 0.07 K/mm3 (0.00-0.00); Immature Granulocyte Percent A 0.6 % (0.0-0.0); Lymphocytes Absolute Auto 1.48 K/mm3 (1.10-4.50); Lymphocytes Percent Auto 12.4 % (18.0-42.0); Mean Corpuscular HGB Conc 32.6 g/dL (32.0-36.0); Mean Corpuscular Hemoglobin 28.9 pg (27.0-31.0); Mean Corpuscular Volume 88.8 fL (78.0-102.0); Mean Platelet Volume 10.2 fl (8.7-11.0); Monocytes Absolute Auto 0.58 K/mm3 (0.10-0.90); Monocytes Percent Auto 4.8 % (2.0-11.0); Neutrophils Absolute Auto 9.8 K/mm3 (1.7-7.2); Neutrophils Percent Auto 81.8 % (50.0-70.0); Platelet Count Result 322 K/mm3 (150-420); Red Blood Count 5.29 M/mm3 (4.70-6.10); Red Cell Distribution Width 13.7 % (11.6-14.4)
[2020-08-11 16:36] LABS: Add Urine Microscopic? NO; Appearance Urine Clear (Clear); Bilirubin Urine Negative (Negative); Blood Urine Negative (Negative); Color Urine Yellow (Yellow); Glucose Urine UA Negative (Negative); Ketones Urine Negative (Negative); Leukocyte Esterase Ur Negative (Negative); Nitrate Urine Negative (Negative); Protein Urine Negative (Negative); Specific Grav Ur 1.015 (1.010-1.020); Urobilinogen Urine 0.2 mg/dL (0.2-1.0); pH Urine 8.5 (5.0-8.0)
[2020-08-11 16:48] LABS: Partial Thromboplastin Time 26.2 SEC (23.90-30.70); Prothrombin Time 11.1 Seconds (9.50-12.10)
[2020-08-11] MEDS: METOCLOPRAMIDE HCL INJ 10 MG/2 ML VIAL IV PUSH (16:49)
[2020-08-11 16:52] LABS: Alanine Aminotransferase 33 U/L (16-63); Albumin Level 3.6 g/dL (3.4-5.0); Alkaline Phosphatase 106 U/L (46-116); Anion Gap 8 mmol/L (8-16); Aspartate Amino Transferase 11 U/L (15-37); Bilirubin,Total 0.5 mg/dL (0.00-1.00); Blood Urea Nitrogen 17 mg/dL (7-18); Calcium 8.6 mg/dL (8.5-10.1); Carbon Dioxide 30 mmol/L (21-32); Chloride 102 mmol/L (98-108); Estimated CRCL calculation 125 ml/min; Estimated Glomerular Filt Rate > 60; Glucose 118 mg/dL (70-99); Lipase 40 U/L (73-393); Osmolality Calculated 292 mOsm/kg (285-295); Potassium 3.6 mmol/L (3.5-5.1); Sodium 140 mmol/L (136-145); Total Protein 7.7 g/dL (6.4-8.2); Troponin I 4.4 ng/L (0.00-60.4)
[2020-08-11 16:55] LABS: Lactic Acid Reflex 1.3 mmol/L (0.4-2.0)
[2020-08-11 17:20] VITALS: BP 137/70; PULSE 77; RESP 17; O2SAT 97
--- NOTE | 2020-08-11 17:27 | ED.GENADULT ---
HPI - General Adult General Chief complaint: Unspecified Stated complaint: ambulance Source: patient and EMS Mode of arrival: EMS Limitations: no limitations History of Present Illness HPI narrative: This is a 35-year-old gentleman that presents to the emergency department via EMS, with some having abdominal pain mainly the left lower and mid quadrant with some nausea and episodes of vomiting currently no fever chills no shortness of breath no chest pain, his abdominal pain started earlier in the day that worsened but was having abdominal pain over the last 3 days ago worsened over this afternoon in this morning. There is no diarrhea no constipation does have nausea with episodes of vomiting has a history of pancreatitis is a former alcohol user current tobacco use and no illicit drugs. Onset (ago): hour(s) Location: abdomen Radiation: non-radiation Severity: moderate Severity scale (1-10): 8 Quality: aching Pain Consistency: constant Relieving factors: none Exacerbating factors: eating and movement Associated symptoms: nausea/vomiting Related Data Home Medications Medication Instructions Recorded Confirmed No Home Medications 07/25/20 07/25/20 Allergies Allergy/AdvReac Type Severity Reaction Status Date / Time No Known Allergies Allergy Verified 08/11/20 12:00 Review of Systems Review of Systems: All systems reviewed & are unremarkable except as noted in HPI and below PMFSH Past Medical History Medical History Lumbago with sciatica Skin abscess Syncope Surgical History Surgical History Hx of cholecystectomy Family History Family History Mother COPD (chronic obstructive pulmonary disease) Social History Social History Smoking packs per day: 1 Smoking cigarettes per day: 20.0 Years smoked: 20 Smoking pack-years: 20.00 Smoking status: Current every day smoker Tobacco type: cigarettes Alcohol intake: former Substance use: current Substance use type: marijuana Gender identity (if verbalized by the patient): Male Sexual Orientation (if Verbalized by the Patient): Straight or Heterosexual Spiritual care concerns: No Exam Const: General: cooperative, healthy appearing, no acute distress, well developed, alert and awake Nutritional Appearance: well nourished Orientation/consciousness: oriented to person, oriented to place and oriented to time Limitations: no limitations HENMT: Head: normal to inspection and No palpable skull fracture present Ears: hearing grossly normal bilaterally General nose exam: Normal external nose present Face and sinus: normal facial exam Mouth: Yes Normal oral and palatal mucosa present and Yes lip normal Throat: posterior oropharynx normal Eyes: General: appearance normal, both eyes and all related structures EOM: EOMs intact bilaterally Direct Ophthalmoscopy: normal light reflex Neck: Neck: normal visual inspection, full ROM, no lymphadenopathy and no meningeal signs Lymphatic: no lymphadenopathy noted Chest: Chest palpation & inspection: normal inspection of the chest Resp: Effort & Inspection: normal respiratory effort and able to speak in complete sentences Cardio: Jugular venous distension: no JVD Palpation: normal PMI Rate: regular rate Rhythm: regular rhythm Heart sounds: S1 normal heart sound present and S2 normal heart sound present GI: Inspection: normal to inspection GI Palp: Yes abdominal tenderness Auscultation: High-pitched bowel sounds present Back/Spine/Pelvis: Back: no CVA tenderness Cervical Spine: normal cervical lordosis and pain with cervical ROM Skin: General skin exam: normal color and no rashes or lesions noted Neuro: General: oriented to person, oriented to place, oriented to time, patie
[2020-08-11 17:57] VITALS: BMI 43.4
[2020-08-11 18:01] VITALS: BP 130/88; PULSE 88; RESP 18; TEMP 36.6; O2SAT 98
[2020-08-11] MEDS: HYDROmorphone HCL INJ (*CRX) 2 MG/ML VIAL IV PUSH (19:19)
[2020-08-11] MEDS: LACTATED RINGERS 1,000 ML 100 ML IV CONT (19:23)
[2020-08-11 20:00] VITALS: BP 119/70; PULSE 61; RESP 20; TEMP 36.4; O2SAT 94
[2020-08-11 23:36] VITALS: BP 135/70; PULSE 52; RESP 20; TEMP 36.6; O2SAT 97
[2020-08-11] MEDS: NICOTINE (*PBKC) 21 MG PATCH 1 PATCH TRANSDERM (23:39)
[2020-08-12] MEDS: ONDANSETRON INJ 4 MG/2 ML VIAL IV PUSH ×3 (01:00→15:52)
[2020-08-12] MEDS: HYDROmorphone HCL INJ (*CRX) 2 MG/ML VIAL IV PUSH ×5 (01:01→19:59)
--- NOTE | 2020-08-12 01:12 | PC.NURSE ---
Pt c/o upper abdominal pain and rates it an '8' on a 1-10 pain scale; He also states he is nauseated and requested medication to relieve it. Pt given dilaudid 2 mg and zofran 4 mg IVP to relieve pt's c/o nausea and abdominal pain.
[2020-08-12 04:00] VITALS: BP 114/62; PULSE 71; RESP 20; TEMP 36.2; O2SAT 95
[2020-08-12] MEDS: LACTATED RINGERS 1,000 ML 100 ML IV CONT ×2 (04:38→14:24)
[2020-08-12 05:36] LABS: Basophils Absolute Auto 0.02 K/mm3 (0.00-0.10); Basophils Percent Auto 0.2 % (0.0-1.0); Eosinophils Absolute Auto 0.04 K/mm3 (0.02-0.50); Eosinophils Percent Auto 0.3 % (1.0-6.0); Hematocrit 47.2 % (40.0-54.0); Hemoglobin 15.6 g/dL (14.0-18.0); Immature Granulocyte Absolute 0.06 K/mm3 (0.00-0.00); Immature Granulocyte Percent A 0.5 % (0.0-0.0); Lymphocytes Absolute Auto 2.72 K/mm3 (1.10-4.50); Lymphocytes Percent Auto 21.4 % (18.0-42.0); Mean Corpuscular HGB Conc 33.1 g/dL (32.0-36.0); Mean Corpuscular Hemoglobin 29.7 pg (27.0-31.0); Mean Corpuscular Volume 89.9 fL (78.0-102.0); Monocytes Absolute Auto 0.91 K/mm3 (0.10-0.90); Monocytes Percent Auto 7.1 % (2.0-11.0); Neutrophils Percent Auto 70.5 % (50.0-70.0); Platelet Count Result 329 K/mm3 (150-420); Red Blood Count 5.25 M/mm3 (4.70-6.10); Red Cell Distribution Width 13.6 % (11.6-14.4); White Blood Count 12.7 K/mm3 (4.8-10.8)
[2020-08-12 05:57] LABS: Alanine Aminotransferase 38 U/L (16-63); Albumin Level 3.3 g/dL (3.4-5.0); Alkaline Phosphatase 106 U/L (46-116); Anion Gap 8 mmol/L (8-16); Aspartate Amino Transferase 15 U/L (15-37); Bilirubin,Total 0.5 mg/dL (0.00-1.00); Blood Urea Nitrogen 15 mg/dL (7-18); Calcium 8.3 mg/dL (8.5-10.1); Carbon Dioxide 30 mmol/L (21-32); Chloride 101 mmol/L (98-108); Estimated CRCL calculation 139 ml/min; Estimated Glomerular Filt Rate > 60; Glucose 101 mg/dL (70-99); Osmolality Calculated 288 mOsm/kg (285-295); Phosphorus 3.9 mg/dL (2.6-4.7); Potassium 3.9 mmol/L (3.5-5.1); Sodium 139 mmol/L (136-145); Total Protein 7.5 g/dL (6.4-8.2)
[2020-08-12 07:35] VITALS: BP 152/97; PULSE 76; RESP 18; TEMP 36.6; O2SAT 100
[2020-08-12 07:56] VITALS: BP 122/75
--- NOTE | 2020-08-12 09:37 | PC.NURSE ---
Patient asleep. No apparent distress noted. Call light and needed items within reach.
[2020-08-12] MEDS: PROCHLORPERAZINE EDISYLATE 10 MG/2 ML VIAL IV PUSH ×2 (11:27→18:50)
[2020-08-12 12:00] VITALS: BP 107/67; PULSE 73; RESP 18; TEMP 36.3; O2SAT 96
--- NOTE | 2020-08-12 13:02 | PM.IMHP ---
H&P: HPI History of Present Illness Date/Time: 08/12/20 13:02 this is a 35-year-old gentleman who presented to the urgent care today complaining of abdominal pain and nausea and vomiting. Patient has a past medical history of skin abscess syncope and lumbago with sciatica. Patient notes he has been having abdominal pain with the nausea and vomiting for approximately 3 days he noted that he believes it all started when he had a alcoholic beverage. Patient notes that he has been admitted for pancreatitis in the past also cholecystitis in which his gallbladder was removed. Patient notes that he has been having problems since his cholecystectomy. On admission patient's WBCs 12.0, lipase 40, toxicology positive for opiates and cannabis. CT of the abdomen indicates possible enteritis versus adynamic ileus. Patient is being admitted will remain n.p.o. pain control and antinausea medication, will give antinausea medication. The patient denies SOB, CP, palpitation, extremity numbness, lightheadedness, dizziness, constipation, diarrhea, chills, or fever. <KEILY Mcmahon - Last Filed: 08/12/20 13:51> Chief Complaint: Abdominal pain, nausea and vomiting <KEILY Mcmahon - Last Filed: 08/12/20 13:51> Review of Systems Review of Systems: Narrative: A 14 organ system Review of Systems was performed and pertinent positives included in the HPI, otherwise remaining ROS is negative. <KEILY Mcmahon - Last Filed: 08/12/20 13:51> [facility] Past Medical History Medical History: Medical History (Updated 08/12/20 @ 13:49 by KEILY Mcmahon) Lumbago with sciatica Skin abscess Syncope <KEILY Mcmahon - Last Filed: 08/12/20 13:51> Surgical History Surgical History: Surgical History Hx of cholecystectomy <KEILY Mcmahon - Last Filed: 08/12/20 13:51> Family History Family History: Family History Mother COPD (chronic obstructive pulmonary disease) <KEILY Mcmahon - Last Filed: 08/12/20 13:51> Social History Social History: Social History Smoking packs per day: 1 Smoking cigarettes per day: 20.0 Years smoked: 20 Smoking pack-years: 20.00 Smoking status: Current every day smoker Tobacco type: cigarettes Alcohol intake: former Substance use: unknown Substance use type: does not use Gender identity (if verbalized by the patient): Male Sexual Orientation (if Verbalized by the Patient): Straight or Heterosexual Spiritual care concerns: No <KEILY Mcmahon - Last Filed: 08/12/20 13:51> Meds Home Medications and Allergies Home medications: Home Medications Medication Instructions Recorded Confirmed Type No Home Medications 07/25/20 08/11/20 History <KEILY Mcmahon - Last Filed: 08/12/20 13:51> Allergies/Adverse reactions: Allergies Allergy/AdvReac Type Severity Reaction Status Date / Time No Known Allergies Allergy Verified 08/11/20 12:00 <KEILY Mcmahon - Last Filed: 08/12/20 13:51> Vital Signs Vital Signs - 24 hr 08/11/20 16:08 08/11/20 17:20 08/11/20 18:01 Temperature 97.6 F 98 F Pulse Rate 70 77 88 Respiratory Rate 16 17 18 Blood Pressure 130/89 137/70 130/88 Pulse Oximetry 98 97 98 08/11/20 20:00 08/11/20 23:36 08/12/20 04:00 Temperature 97.6 F 97.8 F 97.2 F L Pulse Rate 61 52 L 71 Respiratory Rate 20 20 20 Blood Pressure 119/70 135/70 114/62 Pulse Oximetry 94 97 95 08/12/20 07:35 08/12/20 07:56 08/12/20 12:00 Temperature 97.9 F 97.4 F L Pulse Rate 76 73 Respiratory Rate 18 18 Blood Pressure 152/97 H 122/75 107/67 Pulse Oximetry 100 96 <KEILY Mcmahon - Last Filed: 08/12/20 13:51> Exam Narrative: Exam Narrative: GENERAL: This is a well-nourished, well-deve
--- NOTE | 2020-08-12 14:33 | PC.NURSE ---
Patient resting in bed. New bag of IV fluids hung. He denies any discomfort at this time. Ice chips provided. Call light within reach.
[2020-08-12 16:00] VITALS: BP 127/87; PULSE 87; RESP 18; TEMP 36.4; O2SAT 91
[2020-08-12] MEDS: NICOTINE (*PBKC) 21 MG PATCH 1 PATCH TRANSDERM (19:58)
[2020-08-12 20:00] VITALS: BP 136/90; PULSE 84; RESP 18; TEMP 36.9; O2SAT 93
--- NOTE | 2020-08-12 20:00 | PC.NURSE ---
pt resting in bed, iv fluids infusing per order and alarms on, pt given pain medication see MAR, denies any other needs at this time.
[2020-08-13] VITALS: BP 139/91; PULSE 89; RESP 20; TEMP 36.5; O2SAT 94
[2020-08-13] MEDS: HYDROmorphone HCL INJ (*CRX) 2 MG/ML VIAL IV PUSH ×3 (00:01→08:29)
[2020-08-13] MEDS: LACTATED RINGERS 1,000 ML 100 ML IV CONT (00:04)
[2020-08-13 04:31] VITALS: BP 133/80; PULSE 93; RESP 20; TEMP 36.5; O2SAT 96
[2020-08-13 05:50] LABS: Hematocrit 49.7 % (40.0-54.0); Hemoglobin 16.5 g/dL (14.0-18.0); Mean Corpuscular HGB Conc 33.2 g/dL (32.0-36.0); Mean Corpuscular Hemoglobin 29.8 pg (27.0-31.0); Mean Corpuscular Volume 89.9 fL (78.0-102.0); Mean Platelet Volume 9.9 fl (8.7-11.0); Platelet Count Result 307 K/mm3 (150-420); Red Blood Count 5.53 M/mm3 (4.70-6.10); Red Cell Distribution Width 13.2 % (11.6-14.4); White Blood Count 9.3 K/mm3 (4.8-10.8)
[2020-08-13 06:10] LABS: Alanine Aminotransferase 44 U/L (16-63); Albumin Level 3.3 g/dL (3.4-5.0); Alkaline Phosphatase 112 U/L (46-116); Anion Gap 8 mmol/L (8-16); Aspartate Amino Transferase 18 U/L (15-37); Bilirubin,Total 0.9 mg/dL (0.00-1.00); Blood Urea Nitrogen 15 mg/dL (7-18); Calcium 8.4 mg/dL (8.5-10.1); Carbon Dioxide 30 mmol/L (21-32); Chloride 97 mmol/L (98-108); Estimated CRCL calculation 137 ml/min; Estimated Glomerular Filt Rate > 60; Glucose 97 mg/dL (70-99); Osmolality Calculated 280 mOsm/kg (285-295); Potassium 3.4 mmol/L (3.5-5.1); Sodium 135 mmol/L (136-145); Total Protein 7.6 g/dL (6.4-8.2)
--- NOTE | 2020-08-13 07:15 | PC.NURSE ---
Resting quietly at this time, no evidence of pain, fluids infusing, remains on ice chips only
[2020-08-13 08:00] VITALS: BP 116/71; PULSE 67; RESP 18; TEMP 36.5; O2SAT 95
--- NOTE | 2020-08-13 08:32 | PC.NURSE ---
Eating regular breakfast tray, taking it slow
[2020-08-13] MEDS: POTASSIUM CHLORIDE 20 MEQ TABLET 40 MEQ PO (09:02)
--- NOTE | 2020-08-13 11:00 | PC.NURSE ---
Discharge to home, no pain voiced, no n/v, discharge instructions reviewed, no questions, home ambulatory to car with mother in law
--- NOTE | 2020-08-13 11:06 | P.DS_ITS ---
DS: Admitting Diagnosis Admitting Diagnosis Admitting Diagnosis: Adynamic ileus versus enteritis <Mikejeanne SigridGRACIELA Valente-C - Last Filed: 08/13/20 11:26> DS: Discharge Diagnosis Discharge Diagnosis (1) Adynamic ileus: Code(s): K56.0 - Paralytic ileus <Jarrell MattaGRACIELA Valente-C - Last Filed: 08/13/20 11:26> Status: Acute <Jarrell MattaGRACIELA Valente-C - Last Filed: 08/13/20 11:26> Assessment and Plan: * Etiology unknown * CT indicates Borderline dilatation of proximal to mid small bowel without apparent obstruction. Consider enteritis, mild adynamic ileus * Patient able to tolerate regular diet will discharge home with Zofran Compazine Reglan and pain medication <Mikejeanne SigridGRACIELA Valente-Chelsie - Last Filed: 08/13/20 11:26> (2) Nausea and vomiting: Code(s): R11.2 - Nausea with vomiting, unspecified <Jarrell SigridGRACIELA Valente-Chelsie - Last Filed: 08/13/20 11:26> Status: Acute <Jarrell MattaGRACIELA Valente-C - Last Filed: 08/13/20 11:26> Assessment and Plan: * Resolved * Possibly secondary to adynamic ileus versus enteritis versus cannabinoid hyperemesis syndrome * Patient will discharge home with Reglan, Compazine and Zofran <Mikejeanne SigridGRACIELA Valente-C - Last Filed: 08/13/20 11:26> (3) Enteritis: Code(s): K52.9 - Noninfective gastroenteritis and colitis, unspecified <Jarrell MattaGRACIELA Valente-C - Last Filed: 08/13/20 11:26> Status: Acute <GRACIELA Mcmahon-C - Last Filed: 08/13/20 11:26> Assessment and Plan: * Refer to adynamic ileus <GRACIELA Mcmahon-Chelsie - Last Filed: 08/13/20 11:26> (4) Dehydration: Code(s): E86.0 - Dehydration <GRACIELA Mcmahon-C - Last Filed: 08/13/20 11:26> Status: Acute <KEILY Mcmahon - Last Filed: 08/13/20 11:26> Assessment and Plan: * Resolved * Secondary to nausea vomiting * Referred to nausea vomiting <KEILY Mcmahon - Last Filed: 08/13/20 11:26> (5) Addiction, marijuana: Code(s): F12.20 - Cannabis dependence, uncomplicated <KEILY Mcmahon - Last Filed: 08/13/20 11:26> Status: Acute <KEILY Mcmahon - Last Filed: 08/13/20 11:26> Assessment and Plan: * Patient educated on cessation <KEILY Mcmahon - Last Filed: 08/13/20 11:26> (6) Cannabis hyperemesis syndrome concurrent with and due to cannabis abuse: Code(s): F12.188 - Cannabis abuse with other cannabis-induced disorder <KEILY Mcmahon - Last Filed: 08/13/20 11:26> Status: Acute <KEILY Mcmahon - Last Filed: 08/13/20 11:26> Assessment and Plan: * Patient educated on syndrome <KEILY Mcmahon - Last Filed: 08/13/20 11:26> (7) History of pancreatitis: Code(s): Z87.19 - Personal history of other diseases of the digestive system <KEILY Mcmahon - Last Filed: 08/13/20 11:26> Status: Acute <KEILY Mcmahon - Last Filed: 08/13/20 11:26> Assessment and Plan: * Lipase within normal limits * No abnormality noted on CT <KEILY Mcmahon - Last Filed: 08/13/20 11:26> DS: Summary Hospital Course Reason for hospitalization: Abdominal pain <KEILY Mcmahon - Last Filed: 08/13/20 11:26> Hospital Course: this is a 35-year-old gentleman who presented to the ED with complaining of abdominal pain and nausea and vomiting. Patient has a past medical history of skin abscess syncope and lumbago with sciatica and pancreatitis. Patient notes he has been having abdomi
--- NOTE | 2020-08-13 11:06 | PM.DS ---
DS: Admitting Diagnosis Admitting Diagnosis Admitting Diagnosis: Adynamic ileus versus enteritis <GRACIELA Mcmahon-C - Last Filed: 08/13/20 11:26> DS: Discharge Diagnosis Discharge Diagnosis (1) Adynamic ileus: Code(s): K56.0 - Paralytic ileus <GRACIELA Mcmahon-C - Last Filed: 08/13/20 11:26> Status: Acute <Jarrell SigridGRACIELA Valente-C - Last Filed: 08/13/20 11:26> Assessment and Plan: Etiology unknown CT indicates Borderline dilatation of proximal to mid small bowel without apparent obstruction. Consider enteritis, mild adynamic ileus Patient able to tolerate regular diet will discharge home with Zofran Compazine Reglan and pain medication <GRACIELA Mcmahon-Chelsie - Last Filed: 08/13/20 11:26> (2) Nausea and vomiting: Code(s): R11.2 - Nausea with vomiting, unspecified <GRACIELA Mcmahon-C - Last Filed: 08/13/20 11:26> Status: Acute <GRACIELA Mcmahon-C - Last Filed: 08/13/20 11:26> Assessment and Plan: Resolved Possibly secondary to adynamic ileus versus enteritis versus cannabinoid hyperemesis syndrome Patient will discharge home with Reglan, Compazine and Zofran <GRACIELA Mcmahon-C - Last Filed: 08/13/20 11:26> (3) Enteritis: Code(s): K52.9 - Noninfective gastroenteritis and colitis, unspecified <GRACIELA Mcmahon-C - Last Filed: 08/13/20 11:26> Status: Acute <GRACIELA Mcmahon-C - Last Filed: 08/13/20 11:26> Assessment and Plan: Refer to adynamic ileus <GRACIELA Mcmahon-Chelsie - Last Filed: 08/13/20 11:26> (4) Dehydration: Code(s): E86.0 - Dehydration <GRACIELA Mcmahon-C - Last Filed: 08/13/20 11:26> Status: Acute <GRACIELA Mcmahon-C - Last Filed: 08/13/20 11:26> Assessment and Plan: Resolved Secondary to nausea vomiting Referred to nausea vomiting <KEILY Mcmahon - Last Filed: 08/13/20 11:26> (5) Addiction, marijuana: Code(s): F12.20 - Cannabis dependence, uncomplicated <KEILY Mcmahon - Last Filed: 08/13/20 11:26> Status: Acute <KEILY Mcmahon - Last Filed: 08/13/20 11:26> Assessment and Plan: Patient educated on cessation <KEILY Mcmahon - Last Filed: 08/13/20 11:26> (6) Cannabis hyperemesis syndrome concurrent with and due to cannabis abuse: Code(s): F12.188 - Cannabis abuse with other cannabis-induced disorder <KEILY Mcmahon - Last Filed: 08/13/20 11:26> Status: Acute <KEILY Mcmahon - Last Filed: 08/13/20 11:26> Assessment and Plan: Patient educated on syndrome <KEILY Mcmahon - Last Filed: 08/13/20 11:26> (7) History of pancreatitis: Code(s): Z87.19 - Personal history of other diseases of the digestive system <KEILY Mcmahon - Last Filed: 08/13/20 11:26> Status: Acute <KEILY Mcmahon - Last Filed: 08/13/20 11:26> Assessment and Plan: Lipase within normal limits No abnormality noted on CT <KIELY Mcmahon - Last Filed: 08/13/20 11:26> DS: Summary Hospital Course Reason for hospitalization: Abdominal pain <KEILY Mcmahon - Last Filed: 08/13/20 11:26> Hospital Course: this is a 35-year-old gentleman who presented to the ED with complaining of abdominal pain and nausea and vomiting. Patient has a past medical history of skin abscess syncope and lumbago with sciatica and pancreatitis. Patient notes he has been having abdominal pain with nausea and vomiting for approximately 3 days he noted that he believes it all started when he had a alcoholic beverage. Patient noted that he has been admitted for pancreatitis in the past also cholecystitis in which his gallbladder was removed. Patient notes that he has been having problems since his cholecystectomy. On admission patient's WBCs 12.0,
--- NOTE | 2020-08-18 14:27 | PC.NURSE ---
Pt states he received and understood his discharge instructions. Pt states everyone was nice to me, they were perfect .
== END 2020-08-13 11:00 | disposition home or self-care (01) | DRG 247 ==
LOC: CHSED 17:36 → CHS2ND 08-12 07:37
PROVIDERS: Nurse Practitioner; Admitting Provider Emergency Medicine; Emergency Provider Emergency Medicine; PCP Nurse Practitioner Family; Visit Provider Emergency Medicine
DX: K56.0 Paralytic ileus (principal); K52.9 Noninfective gastroenteritis and colitis, unspecified; E86.0 Dehydration; M54.5 Low back pain; F12.90 Cannabis use, unspecified, uncomplicated; F17.210 Nicotine dependence, cigarettes, uncomplicated; Z90.49 Acquired absence of other specified parts of digestive tract
CPT/HCPCS: 36415; 74177; 80053; 81003; 83605; 83690; 83735; 84100; 84484; 85025; 85027; 85610; 85730; 93005; 96361; 96374; 96375; 99285; A9270; J0780; J1170; J2270; J2405; J2765; J7030; J7120; Q9967

== ENCOUNTER 2020-08-14 03:50 | Observation (INO) | payer OTHER, SELFPAY ==
[2020-08-14] VITALS (9 sets, daily range): BP systolic 98–141; BP diastolic 72–100; PULSE 78–118; RESP 16–20; TEMP 36.1–36.8; O2SAT 95–98; BMI 41.7
--- NOTE | ~2020-08-14 | CT_ITS ---
EXAMINATION: CTA chest PE protocol DATE: 08/14/2020 12:44 INDICATION: 13 mm irregular soft tissue density of right lower lobe TECHNIQUE: Computed tomography angiography (CTA) of the chest was performed with 100 mL Omnipaque-350 intravenous contrast timed to evaluate the pulmonary arteries. Coronal maximum intensity projection 3D-reconstructions were created by the technologist. Automated exposure control and iterative reconst ruction technique were employed. Exam dose: 1083.99 mGy-cm total exam DLP. COMPARISON: 08/14/2020 CT abdomen pelvis 04/20/2020 CT abdomen pelvis 03/12/2019, 06/14/2018, 12/05/2017 CT abdomen pelvis examinations FINDINGS: No prior CT chest examination for comparison. The 04/20/2020 CT abdomen pelvis confirms the 9 mm right lower lobe opacity along the greater fissure and retrospectively an approximately 10 mm f ocal irregular density amidst some dependent right lower lobe atelectasis. No other mass lesion is identified in the lung shaffer. No pulmonary infiltrate or consolidation. There is mild right hilar and subcarinal lymph node prominence, possibly reactive. There is diagnostic contrast enhancement of the pulmonary arteries and no evidence of pulmonary embol ism. No thoracic aortic aneurysm or dissection. Normal heart size. No pericardial or pleural effusion. Status post cholecystectomy. Normal morphology of the adrenal glands. Degenerative spurring of the thoracic spine. No suspicious osteolytic or osteoblastic lesions are not ed. IMPRESSION: 9 mm and 13 mm right lower lobe nodules; the right greater fissure 9 mm nodule appears s table compared to 04/20/2020. Minimal change of irregular up to 13 mm right lower lobe density since 04/20/2020. Six-month CT chest follow-up is recommended Reviewed, dictated and finalized at [facility]. Reviewed, dictated and finalized at [facility]. IMPRESSION: 9 mm and 13 mm right lower lobe nodules; the right greater fissure 9 mm nodule appears stable compared to 04/20/2020. Minimal change of irregular up to 13 mm right lower lobe density since 04/20/2020. Six-month CT chest follow-up is recommended
--- NOTE | ~2020-08-14 | CT_ITS ---
EXAMINATION: CT abdomen pelvis wo con DATE: 08/14/2020 09:59 INDICATION: Abdominal pain, ileus TECHNIQUE: Computed tomography (CT) of the abdomen and pelvis was performed without intravenous contr ast. Automated exposure control and iterative reconstruction technique were employed. Exam dose: 155 0.54 mGy-cm total exam DLP. COMPARISON: 08/11/2020 CT abdomen pelvis with IV contrast material FINDINGS: There is an approximately 13 mm irregular soft tissue density in the posterolateral periphe ral right lower lobe, not completely included in this CT abdomen examination. CT thorax is recommende d for further evaluation. The included lower lung zones otherwise are clear of infiltrate or consolidation or other mass lesion . Normal heart size. No pericardial or pleural effusion. Status post cholecystectomy. The liver, spleen, pancreas, adrenal glands and kidneys are unremarkable on this limited noncontrast examination. No bile duct or pancreatic duct dilatation. No urinary tract calculus or hydroureteronephrosis. Normal caliber of the abdominal aorta. No intraperitoneal or retroperitoneal or pelvic mass lesion or adenopathy or ascites. The urinary bladder and prostate gland are unremarkable. Normal appendix. Minimal diverticulosis of the oid colon; no CT evidence of diverticulitis. No bowel obstruction, bowel wall thickening, pneumatosis or intraperitoneal free air. Very small fat-containing umbilical hernia. Included skeletal structures are unremarkable. IMPRESSION: Interval resolution of borderline dilatation of the proximal to mid small bowel since 13 mm partially included irregular soft tissue density in the posterolateral peripheral right lower l obe; CT thorax is recommended for further evaluation Minimal colonic diverticulosis Dr. Carlson telephoned the report to the second floor nurse Roxana on 08/14/2020 at 1200 hours, including t he recommendation for CT thorax to evaluate the partially included right lower lobe 13 mm mass. Reviewed, dictated and finalized at [facility]. Reviewed, dictated and finalized at [facility]. IMPRESSION: Interval resolution of borderline dilatation of the proximal to mi d small bowel since 08/11/2020 13 mm partially included irregular soft tissue density in the posterolateral pe ripheral right lower lobe; CT thorax is recommended for further evaluation Minimal colonic diverticulosis Dr. Carlson telephoned the report to the second floor nurse Roxana on 08/14/2020 at 1 200 hours, including the recommendation for CT thorax to evaluate the partially included right lower lobe 13 mm mass.
--- NOTE | ~2020-08-14 | XR_ITS ---
XR abdomen/kub 1V 08/14/2020 04:49 INDICATION: Abdominal pain TECHNIQUE: KUB COMPARISON: 03/24/2015 FINDINGS: Bowel gas pattern is normal. There is no evidence of free air, mass, organomegaly, ascites or obstruction. No abnormal calculi are seen. The bones appear intact. There are cholecystectomy c lips. IMPRESSION: 1: No acute abdominal abnormality identified. Reviewed, dictated and finalized at [facility].
--- NOTE | 2020-08-14 04:15 | ECG_ITS ---
Measurements Intervals [place] Rate: 88 P: 37 [place]: 156 QRS: 19 QRSD: 115 T: 66 QT: 402 QTc: 489 Interpretive Statements SINUS RHYTHM WITH SINUS ARRHYTHMIA INTRAVENTRICULAR CONDUCTION DELAY NONSPECIFIC T-WAVE ABNORMALITY- LAT/HIGH LAT LEADS BASELINE WANDER- V1 BORDERLINE ECG Electronically Signed On 08-14-2020 7:38:28 CDT by Trace Ashley D.O.
--- NOTE | 2020-08-14 04:20 | ED.GENADULT ---
HPI - General Adult General Chief complaint: Nausea/Vomiting/Diarrhea Stated complaint: Nausea Source: patient Mode of arrival: ambulatory Limitations: no limitations History of Present Illness HPI narrative: Mitesh is a 35M with a PMH pancreatitis, adynamic ileus, left hip pain, cannnabis use and hyperemesis syndrome that was recently discharged yesterday after being treated for adynamic ileus. He got home at 11 yesterday and went to sleep. He woke up at 1600 with nausea and abdominal pain in the LUQ and epigastric region as well as lots of wretching and dry heaving. He had another bowel movement. He was able to eat breakfast yesterday but had pain when he tried to eat again. No CP, SOB, PERALTA, back pain, dysuria or hematuria. Related Data Allergies Allergy/AdvReac Type Severity Reaction Status Date / Time No Known Allergies Allergy Verified 08/11/20 12:00 Review of Systems Constitutional: Constitutional: Reports no additional constitutional complaints Eyes: Eyes: Reports no additional eye complaints ENT: Reports system reviewed and no additional complaints, except as documented Cardiovascular: Cardiovascular: Reports no additional cardiovascular complaints Respiratory: Respiratory: Reports no additional respiratory complaints Gastrointestinal: Gastrointestinal: Reports as per HPI, Reports abdominal pain, Denies constipation, Denies diarrhea, Reports nausea and Reports vomiting Genitourinary: Genitourinary: Reports no additional male genitourinary complaints Musculoskeletal: Musculoskeletal: Reports no additional musculoskeletal complaints Integumentary/Breasts: Skin/Breast: Reports system reviewed and no additional complaints, except as docu Neurologic: Reports system reviewed and no additional complaints, except as documented Psychiatric: Psychiatric: Reports no additional psychiatric complaints Endocrine: Endocrine: Reports no additional endocrine complaints Hematologic/Lymphatic: Hematologic/Lymphatic: Reports no additional hematologic/lymphatic complaints Allergic/Immunologic: Allergic/Immunologic: Reports no additional allergic/immunologic complaints [facility] Past Medical History Medical History (Updated 08/14/20 @ 06:32 by Chris Abel DO) Lumbago with sciatica Skin abscess Syncope Surgical History Surgical History Hx of cholecystectomy Family History Family History Mother COPD (chronic obstructive pulmonary disease) Social History Social History Smoking packs per day: 1 Smoking cigarettes per day: 20.0 Years smoked: 20 Smoking pack-years: 20.00 Smoking status: Current every day smoker Tobacco type: cigarettes Alcohol intake: former Substance use: unknown Substance use type: does not use Gender identity (if verbalized by the patient): Male Spiritual care concerns: No Exam Const: General: No confusion Orientation/consciousness: patient oriented x3 Limitations: No altered mental status Other: Moderate distress. Was lying in bed holding a vomit bag dry heaving. HENMT: Other: normocephalic, atraumatic Eyes: Conjunctivae: conjunctivae normal Pupils: Equal, round and reactive pupils present Neck: Neck: normal visual inspection Chest: Chest palpation & inspection: normal inspection of the chest Resp: Effort & Inspection: normal respiratory effort and not labored Auscultation: clear to auscultation bilaterally Cardio: Rate: tachycardic Rhythm: regular rhythm Heart sounds: no murmurs GI: GI Palp: Yes Soft to palpation, Yes Tenderness to palpation present (GI), No Guarding due to palpation present (GI), No Rigid due to palpation and No Rebound tenderness present Other: minimal bowel sounds : General: Yes no CVA tenderness Skin: General skin exam: normal color Rashes: no rashes Neuro:
[2020-08-14 04:30] LABS: Basophils Absolute Auto 0.05 K/mm3 (0.00-0.10); Basophils Percent Auto 0.3 % (0.0-1.0); Eosinophils Absolute Auto 0.01 K/mm3 (0.02-0.50); Eosinophils Percent Auto 0.1 % (1.0-6.0); Hematocrit 49.3 % (40.0-54.0); Hemoglobin 16.7 g/dL (14.0-18.0); Immature Granulocyte Absolute 0.15 K/mm3 (0.00-0.00); Immature Granulocyte Percent A 0.8 % (0.0-0.0); Lymphocytes Absolute Auto 2.08 K/mm3 (1.10-4.50); Lymphocytes Percent Auto 11.4 % (18.0-42.0); Mean Corpuscular HGB Conc 33.9 g/dL (32.0-36.0); Mean Corpuscular Hemoglobin 28.7 pg (27.0-31.0); Mean Corpuscular Volume 84.7 fL (78.0-102.0); Monocytes Absolute Auto 1.29 K/mm3 (0.10-0.90); Monocytes Percent Auto 7.1 % (2.0-11.0); Neutrophils Absolute Auto 14.6 K/mm3 (1.7-7.2); Neutrophils Percent Auto 80.3 % (50.0-70.0); Platelet Count Result 442 K/mm3 (150-420); Red Blood Count 5.82 M/mm3 (4.70-6.10); Red Cell Distribution Width 13.2 % (11.6-14.4); White Blood Count 18.2 K/mm3 (4.8-10.8)
[2020-08-14] MEDS: HALOPERIDOL LACTATE 5 MG/ML VIAL IV PUSH (04:39)
--- NOTE | 2020-08-14 04:41 | PC.NURSE ---
0440 pt to xray per wheel chair, yelling at RN you are rude, give me some pain medication. explained to pt that medication was given as ordered per the ERP only 30 seconds prior to requesting medications. pt states well it hasn't worked yet. again explained to pt it has only been 30 seconds since medication has been administered. pt heading to xray still yelling at RN you are the rudest nurse i have ever had. [id number] pt return to room per wheelchair with xray staff.
[2020-08-14] MEDS: SODIUM CHLORIDE 0.9% IV 1,000 ML 999 ML IV CONT (04:44)
[2020-08-14 04:46] LABS: Alanine Aminotransferase 38 U/L (16-63); Albumin Level 4.2 g/dL (3.4-5.0); Alkaline Phosphatase 123 U/L (46-116); Anion Gap 15 mmol/L (8-16); Aspartate Amino Transferase 13 U/L (15-37); Blood Urea Nitrogen 27 mg/dL (7-18); Calcium 9.3 mg/dL (8.5-10.1); Carbon Dioxide 24 mmol/L (21-32); Chloride 97 mmol/L (98-108); Estimated CRCL calculation 94 ml/min; Estimated Glomerular Filt Rate 57; Glucose 135 mg/dL (70-99); Osmolality Calculated 289 mOsm/kg (285-295); Potassium 3.6 mmol/L (3.5-5.1); Sodium 136 mmol/L (136-145); Total Protein 8.7 g/dL (6.4-8.2)
--- NOTE | 2020-08-14 04:48 | PC.NURSE ---
pt up attempting to call , instructions given on how to dial out.
[2020-08-14 04:49] LABS: Lactic Acid Reflex 2.7 mmol/L (0.4-2.0)
[2020-08-14 04:50] LABS: Lipase 39 U/L (73-393)
[2020-08-14] MEDS: fentaNYL CITRATE INJ (*CRX) 100 MCG/2 ML VIAL 50 MCG IV PUSH (05:20)
[2020-08-14] MEDS: LORazepam INJ (*CRX) 2 MG/ML VIAL 0.5 MG IV PUSH (06:13)
--- NOTE | 2020-08-14 06:22 | PC.NURSE ---
SANGEETHA NOTIFIED STILL NEED URINE WHEN OBTAINED PER DR GIRON.
[2020-08-14] MEDS: SODIUM CHLORIDE 0.9% IV 1,000 ML 150 ML IV CONT ×2 (06:52→15:23)
[2020-08-14 07:29] LABS: Reflex Lactic Acid Yes or No Add Lactic
[2020-08-14 08:15] LABS: Lactic Acid 0.8 mmol/L (0.4-2.0)
--- NOTE | 2020-08-14 08:29 | ADMGEN ---
This patient, Mitesh Jerome, was admitted to 2nd Floor Room 205-2. Patient/family oriented to hospital policies and general routines including ID bracelet, bed and alarms, visiting hours, pain management, procedures, bathroom and other care routines, personal items, smoking policy, room service/diet, and visiting hours. Information on how to activate the Rapid Response Team has been discussed. Patient/Family are encouraged to report perceived risks to care and to ask questions if they do not understand what they are told or what they should do. Rests quietly in bed. claims pain and n/v is almost gone. 2/10 rating. abd is just slightly tender. claims he is still to dry to give ua at this time.
--- NOTE | 2020-08-14 08:42 | PM.IMHP ---
H&P: HPI History of Present Illness Date/Time: 08/14/20 08:42 this is a 35-year-old white male who presented to ED after being discharged yesterday with a diagnosis of adynamic ileus. Patient has a past medical history of pancreatitis adynamic ileus, cannabis use. Patient was discharged yesterday and woke up later that day with uncontrollable nausea and vomiting and abdominal pain to the left lower quadrant and epigastric. Patient does admit to using cannabis before this episode. Patient WBCs 18, creatinine 1.40, lactic acid within normal limit, lipase 39. Patient is being admitted for cannabis hyperemesis syndrome. Patient remained nauseated with abdominal pain. The patient denies SOB, CP, palpitation, extremity numbness, lightheadedness, dizziness, constipation, diarrhea, chills, or fever. Disposition: Home with self-care Observation <KEILY Mcmahon - Last Filed: 08/14/20 08:53> Chief Complaint: Nausea vomiting abdominal pain <KEILY Mcmahon - Last Filed: 08/14/20 08:53> Review of Systems Review of Systems: Narrative: A 14 organ system Review of Systems was performed and pertinent positives included in the HPI, otherwise remaining ROS is negative. <KEILY Mcmahon - Last Filed: 08/14/20 08:53> [facility] Past Medical History Medical History: Medical History (Updated 08/19/20 @ 10:55 by Bev Morris NP) Lumbago with sciatica Skin abscess Syncope <KEILY Mcmahon - Last Filed: 08/14/20 08:53> Surgical History Surgical History: Surgical History Hx of cholecystectomy <KEILY Mcmahon - Last Filed: 08/14/20 08:53> Family History Family History: Family History Mother COPD (chronic obstructive pulmonary disease) <KEILY Mcmahon - Last Filed: 08/14/20 08:53> Social History Social History: Social History Smoking packs per day: 1 Smoking cigarettes per day: 20.0 Years smoked: 20 Smoking pack-years: 20.00 Smoking status: Never smoker Tobacco type: cigarettes Alcohol intake: never Substance use: unknown Substance use type: marijuana Last use: 08-06-20 Gender identity (if verbalized by the patient): Male Spiritual care concerns: No <KEILY Mcmahon - Last Filed: 08/14/20 08:53> Meds Home Medications and Allergies Home medications: Home Medications Medication Instructions Recorded Confirmed Type hydrocodone-acetaminophen 1 tablet PO Q6H PRN #15 tablet 08/13/20 08/14/20 Rx prochlorperazine maleate 5 mg PO Q8H PRN #30 tablet 08/13/20 08/14/20 Rx [Compazine] capsaicin 1 applic TOPICAL BID #60 g 08/15/20 Rx metoclopramide HCl [Reglan] 5 mg PO DAILY #30 tablet 08/15/20 Rx ondansetron HCl [Zofran] 4 mg PO Q8H #30 tablet 08/15/20 Rx pantoprazole [Protonix] 20 mg PO HS 28 Days #28 tablet 08/15/20 Rx <KEILY Mcmahon - Last Filed: 08/14/20 08:53> Allergies/Adverse reactions: Allergies Allergy/AdvReac Type Severity Reaction Status Date / Time No Known Allergies Allergy Verified 08/19/20 10:51 <KEILY Mcmahon - Last Filed: 08/14/20 08:53> Vital Signs Vital Signs - 24 hr 08/14/20 03:50 08/14/20 06:15 08/14/20 06:23 Temperature 98 F 98.3 F 98 F Pulse Rate 115 H 114 H 112 H Respiratory Rate 20 20 20 Blood Pressure 141/100 H 98/76 L 119/93 H Pulse Oximetry 98 98 97 08/14/20 06:40 08/14/20 08:00 Temperature 97.6 F 98 F Pulse Rate 118 H 90 Respiratory Rate 20 16 Blood Pressure 103/82 118/74 Pulse Oximetry 95 97 <KEILY Mcmahon - Last Filed: 08/14/20 08:53> Exam Narrative: Exam Narrative: Exam Narrative: GENERAL: This is a well-nourished, well-developed patient, in no apparent distress. HEAD: normocephalic, atraumatic. EYES: PERRL. Sclera clear/white. Visio
[2020-08-14] MEDS: CAPSAICIN 0.025% CREAM 60 GM TUBE 1 APPLIC TOPICAL (09:28)
[2020-08-14] MEDS: ONDANSETRON INJ 4 MG/2 ML VIAL IV PUSH (09:28)
[2020-08-14] MEDS: HYDROmorphone HCL INJ (*CRX) 2 MG/ML VIAL 0.5 MG IV PUSH ×5 (09:39→23:37)
--- NOTE | 2020-08-14 09:50 | PC.NURSE ---
0930 c/o n/v after having a bm. claims it was loose and different shades of orange. cont to deny the need to void. and is no having all the pain coming back. rates it 12/30. lead performance support analyst aware. xenia mccabe 0938 prn med given. see mar. xenia mccabe 0950 down and back from xray at this time. still c/o pain and n/v xenia mccabe
[2020-08-14 13:06] LABS: Add Urine Microscopic? YES; Appearance Urine Clear (Clear); Bilirubin Urine Negative (Negative); Blood Urine Negative (Negative); Color Urine Yellow (Yellow); Glucose Urine UA Negative (Negative); Ketones Urine Trace (Negative); Leukocyte Esterase Ur Negative (Negative); Nitrate Urine Negative (Negative); Protein Urine Negative (Negative); Urobilinogen Urine 0.2 mg/dL (0.2-1.0); pH Urine 7.5 (5.0-8.0)
[2020-08-14 13:11] LABS: Amphetamine Screen Urine Positive (Negative); Barbiturate Screen Urine Negative (Negative); Benzodiazepines Screen Urine Negative (Negative); Cannabinoid Screen Urine Positive (Negative); Cocaine Screen Urine Negative (Negative); Methadone Screen Urine Negative (Negative); Opiate Screen Urine Negative (Negative); Phencyclidine Screen Urine Negative (Negative)
[2020-08-14 13:15] LABS: Bacteria Urine Trace /hpf; RBC Urine None seen /hpf (0-2); WBC Urine None seen /hpf (0-3)
--- NOTE | 2020-08-14 13:55 | PC.NURSE ---
up in room. denies any n/v at this time. claims pain is at bay. took hot shower and states he feels good. at bedside.
--- NOTE | 2020-08-14 21:33 | PC.NURSE ---
pt sitting on side of bed talking on phone and laughing, reports feeling much better
--- NOTE | 2020-08-15 02:15 | PC.NURSE ---
pt sleeping, respirations even and regular, no evidence of distress noted, belongings and call light within reach
[2020-08-15] MEDS: HYDROmorphone HCL INJ (*CRX) 2 MG/ML VIAL 0.5 MG IV PUSH ×3 (02:44→08:59)
[2020-08-15 04:00] VITALS: BP 118/82; PULSE 84; RESP 20; TEMP 36.1; O2SAT 98
[2020-08-15 06:19] LABS: Hematocrit 46.6 % (40.0-54.0); Hemoglobin 15.5 g/dL (14.0-18.0); Mean Corpuscular HGB Conc 33.3 g/dL (32.0-36.0); Mean Corpuscular Hemoglobin 29.8 pg (27.0-31.0); Mean Corpuscular Volume 89.4 fL (78.0-102.0); Mean Platelet Volume 10.3 fl (8.7-11.0); Platelet Count Result 296 K/mm3 (150-420); Red Blood Count 5.21 M/mm3 (4.70-6.10); Red Cell Distribution Width 13.6 % (11.6-14.4); White Blood Count 8.1 K/mm3 (4.8-10.8)
[2020-08-15 06:38] LABS: Alanine Aminotransferase 35 U/L (16-63); Albumin Level 3.3 g/dL (3.4-5.0); Alkaline Phosphatase 102 U/L (46-116); Anion Gap 8 mmol/L (8-16); Aspartate Amino Transferase 14 U/L (15-37); Bilirubin,Total 0.8 mg/dL (0.00-1.00); Blood Urea Nitrogen 11 mg/dL (7-18); Calcium 8.3 mg/dL (8.5-10.1); Carbon Dioxide 29 mmol/L (21-32); Chloride 102 mmol/L (98-108); Estimated CRCL calculation 140 ml/min; Estimated Glomerular Filt Rate > 60; Glucose 95 mg/dL (70-99); Osmolality Calculated 287 mOsm/kg (285-295); Potassium 3.6 mmol/L (3.5-5.1); Sodium 139 mmol/L (136-145); Total Protein 7.2 g/dL (6.4-8.2)
[2020-08-15 07:50] VITALS: BP 131/73; PULSE 59; RESP 18; TEMP 36.1; O2SAT 99
[2020-08-15 08:00] VITALS: PULSE 59
[2020-08-15] MEDS: CAPSAICIN 0.025% CREAM 60 GM TUBE 1 APPLIC TOPICAL (08:52)
--- NOTE | 2020-08-15 09:30 | PM.DS ---
DS: Admitting Diagnosis Admitting Diagnosis Admitting Diagnosis: Nausea vomiting abdominal pain secondary to cannabis hyperemesis syndrome <SADIE Mcmahon - Last Filed: 08/15/20 09:39> DS: Discharge Diagnosis Discharge Diagnosis (1) History of pancreatitis: Code(s): Z87.19 - Personal history of other diseases of the digestive system <SADIE Mcmahon - Last Filed: 08/15/20 09:39> Status: Acute <SADIE Mcmahon - Last Filed: 08/15/20 09:39> Assessment and Plan: Lipase within normal limits [facility] Last Filed: 08/15/20 09:39> (2) Nausea and vomiting: Code(s): R11.2 - Nausea with vomiting, unspecified <KEILY Mcmahon - Last Filed: 08/15/20 09:39> Status: Acute <SADIE Mcmahon - Last Filed: 08/15/20 09:39> Assessment and Plan: Resolved Continue Reglan, Zofran and Compazine Instructed to eat a low bland diet <Jarrell Meredith [employer] - Last Filed: 08/15/20 09:39> (3) Dehydration: Code(s): E86.0 - Dehydration <SADIE Mcmahon - Last Filed: 08/15/20 09:39> Status: Acute <SADIE Mcmahon - Last Filed: 08/15/20 09:39> Assessment and Plan: Resolved Continue antinausea [facility] - Last Filed: 08/15/20 09:39> (4) Cannabis hyperemesis syndrome concurrent with and due to cannabis abuse: Code(s): F12.188 - Cannabis abuse with other cannabis-induced disorder <Jarrell Meredith SADIE - Last Filed: 08/15/20 09:39> Status: Acute <Jarrell Meredith SADIE - Last Filed: 08/15/20 09:39> Assessment and Plan: Patient educated on cessationalso given information on condition Consuming a bland diet Continue antinausea Continue capsaicin, warm shower and pain medication, <KEILY Mcmahon - Last Filed: 08/15/20 09:39> DS: Summary Hospital Course Reason for hospitalization: Nausea vomiting and abdominal pain <KEILY Mcmahon - Last Filed: 08/15/20 09:39> Hospital Course: this is a 35-year-old white male who presented to ED after being discharged 08/13/2020 with a diagnosis of adynamic ileus. Patient has a past medical history of pancreatitis adynamic ileus, cannabis use. Patient was discharged and woke up later that day with uncontrollable nausea and vomiting and abdominal pain to the left lower quadrant and epigastric. Patient does admit to using cannabis before this episode. Patient WBCs 18, creatinine 1.40, lactic acid within normal limit, lipase 39. Patient is being admitted for cannabis hyperemesis syndrome. Patient remained nauseated with abdominal pain. The patient denies SOB, CP, palpitation, extremity numbness, lightheadedness, dizziness, constipation, diarrhea, chills, or fever. Patient nausea and vomiting has resolved he still continues to have abdominal tenderness. Patient was given information on cannabis hyperemesis syndrome with instructions on what he can do at home to relieve the symptoms. Disposition: Patient home with self-care Patient will follow up with his primary care physician. He is being discharged home with capsaicin, reglan, zofran, Compazine and pain medication. It is recommended the patient follow-up with repeat CT in 6 months due to nodules palpable in his lungs Observation <KEILY Mcmahon - Last Filed: 08/15/20 09:39> Time Spent with Patient Time attestation: Total time spent providing and/or coordinating discharge services: <KEILY Mcmahon - Last Filed: 08/15/20 09:39> Time spent: Greater than 30 minutes (60 min) <KEILY Mcmahon - Last Filed: 08/15/20 09:39> Exam Narrative: Exam Narrative: Exam Narrative: GENERAL: This is a well-nourished, well-developed patient, in no apparent distress. HEAD: normocephalic, atraumatic. EYES: PERRL. Sclera clear/white. Vision is grossly intact. EARS: Exte
--- NOTE | 2020-08-15 10:30 | PC.NURSE ---
Patient discharged home accompanied by via personal vehicle with all personal belongings. Saline lock removed and patient instructed to follow up with primary with appt scheduled prior to discharge. Mediation list had been gone over and instructed on new and current medications. Patient acknowledged understanding of all instructions.
--- NOTE | 2020-08-18 14:21 | PC.NURSE ---
Pt states he received and understood his discharge instructions. Pt states everyone on the second floor was great, They all have a great bedside manner. But, Kit in the ER was really very rude. She treated me like I'm a junkie, you can even ask Dr. Abel.
== END 2020-08-15 10:30 | disposition home or self-care (01) ==
LOC: CHSED 03:54 → CHS2ND 06:32
PROVIDERS: Nurse Practitioner; Admitting Provider Family Medicine; Emergency Provider Family Medicine; PCP Family Medicine; Visit Provider Family Medicine
DX: E86.0 Dehydration (principal); R11.2 Nausea with vomiting, unspecified; F12.188 Cannabis abuse with other cannabis-induced disorder; F12.90 Cannabis use, unspecified, uncomplicated; F17.200 Nicotine dependence, unspecified, uncomplicated; Z90.49 Acquired absence of other specified parts of digestive tract
CPT/HCPCS: 36415; 71275; 74018; 74176; 80053; 80307; 81001; 83605; 83690; 85025; 85027; 93005; 96361; 96374; 96375; 96376; 99285; A9270; G0378; G0379; J1170; J1630; J2060; J2405; J3010; J7030; Q9967

== ENCOUNTER 2020-09-07 11:42 | Emergency (ER) | payer OTHER, SELFPAY ==
[2020-09-07 12:10] VITALS: BP 152/97; PULSE 74; RESP 20; TEMP 37.1; O2SAT 100
--- NOTE | 2020-09-07 12:13 | ED.NAVMDI ---
HPI - Nausea/Vomiting/Diarrhea General Chief complaint: Abdominal Pain Stated complaint: Ambulance Source: patient, EMS and RN notes reviewed Mode of arrival: EMS History of Present Illness HPI Narrative: Patient states he has been having dry heaves since 3 days ago. Had a long history of recurrent pancreatitis. He frequently asked for narcotic intervention prior to results of labs. MD elicited complaint: nausea, vomiting and abdominal pain Onset (ago): day(s) (3) Description of vomiting: bilious Associated abdominal pain: Yes Location of pain: LUQ Pain consistency: intermittent Severity: moderate Quality: cramping Exacerbating factors: eating Relieving factors: none Associated symptoms: denies other symptoms Related Data Allergies Allergy/AdvReac Type Severity Reaction Status Date / Time No Known Allergies Allergy Verified 08/19/20 10:51 Review of Systems Review of Systems: All systems reviewed & are unremarkable except as noted in HPI and below Constitutional: Constitutional: Denies chills and Denies fever(s) Cardiovascular: Cardiovascular: Reports no additional cardiovascular complaints Respiratory: Respiratory: Reports no additional respiratory complaints Gastrointestinal: Gastrointestinal: Reports as per HPI Genitourinary: Genitourinary: Reports no additional male genitourinary complaints Musculoskeletal: Musculoskeletal: Reports no additional musculoskeletal complaints PMFSH Past Medical History Medical History (Updated 09/07/20 @ 15:54 by Rufino Quinonez MD) Addiction, marijuana Adynamic ileus Cannabis hyperemesis syndrome concurrent with and due to cannabis abuse Chondrolysis of left hip High risk medication use History of pancreatitis Lumbago with sciatica Skin abscess Syncope Surgical History Surgical History Hx of cholecystectomy Family History Family History Mother COPD (chronic obstructive pulmonary disease) Social History Social History Smoking packs per day: 1 Smoking cigarettes per day: 20.0 Years smoked: 20 Smoking pack-years: 20.00 Smoking status: Never smoker Tobacco type: cigarettes Alcohol intake: never Substance use: unknown Substance use type: marijuana Last use: 08-06-20 Gender identity (if verbalized by the patient): Male Spiritual care concerns: No Exam Const: General: alert and ill appearing acutely Nutritional Appearance: well nourished and obese morbidly obese Orientation/consciousness: patient oriented x3 Limitations: No altered mental status HENMT: Head: normal to inspection Ears: external ears normal Face and sinus: normal facial exam Mouth: Yes moist mucous membranes Eyes: Cornea: corneas normal Pupils: Equal, round and reactive pupils present EOM: EOMs intact bilaterally Neck: Neck: normal visual inspection Chest: Chest palpation & inspection: normal inspection of the chest Resp: Effort & Inspection: normal respiratory effort Auscultation: clear to auscultation bilaterally Cardio: Rate: regular rate Rhythm: regular rhythm GI: GI Palp: Yes Soft to palpation, Yes Tenderness to palpation present (GI) (LUQ), Yes Guarding due to palpation present (GI) and No Rebound tenderness present Auscultation: normal bowel sounds Back/Spine/Pelvis: Cervical Spine: cervical ROM normal Thoracic/Lumbar Spine: thoraco-lumbar ROM normal Skin: General skin exam: normal color Rashes: no rashes Neuro: General: patient oriented x3, moves all extremities, no meningeal signs and no focal motor deficits Speech: normal speech Gait exam (Neuro): Normal gait present Extrem: General: normal to inspection and no clubbing, cyanosis or edema Psych: Appearance: grossly normal and well kempt Mental Status: mental status grossly normal Affect: normal affect Attitude: cooperative Thought co
[2020-09-07] MEDS: PROMETHAZINE HCL 25 MG/ML AMPUL IM (12:26)
[2020-09-07 12:40] LABS: Basophils Absolute Auto 0.03 K/mm3 (0.00-0.10); Basophils Percent Auto 0.3 % (0.0-1.0); Hematocrit 44.5 % (40.0-54.0); Hemoglobin 14.9 g/dL (14.0-18.0); Immature Granulocyte Absolute 0.03 K/mm3 (0.00-0.00); Immature Granulocyte Percent A 0.3 % (0.0-0.0); Lymphocytes Absolute Auto 1.02 K/mm3 (1.10-4.50); Lymphocytes Percent Auto 10.7 % (18.0-42.0); Mean Corpuscular HGB Conc 33.5 g/dL (32.0-36.0); Mean Corpuscular Hemoglobin 29.4 pg (27.0-31.0); Mean Corpuscular Volume 87.9 fL (78.0-102.0); Mean Platelet Volume 10.3 fl (8.7-11.0); Monocytes Absolute Auto 0.43 K/mm3 (0.10-0.90); Monocytes Percent Auto 4.5 % (2.0-11.0); Neutrophils Percent Auto 84.2 % (50.0-70.0); Platelet Count Result 333 K/mm3 (150-420); Red Blood Count 5.06 M/mm3 (4.70-6.10); Red Cell Distribution Width 13.2 % (11.6-14.4); White Blood Count 9.5 K/mm3 (4.8-10.8)
[2020-09-07 12:55] LABS: Alanine Aminotransferase 28 U/L (16-63); Albumin Level 3.4 g/dL (3.4-5.0); Alkaline Phosphatase 122 U/L (46-116); Anion Gap 10 mmol/L (8-16); Aspartate Amino Transferase 14 U/L (15-37); Bilirubin,Total 0.4 mg/dL (0.00-1.00); Blood Urea Nitrogen 13 mg/dL (7-18); CRP 0.7 mg/dL (0.0-0.9); Calcium 8.7 mg/dL (8.5-10.1); Carbon Dioxide 27 mmol/L (21-32); Chloride 103 mmol/L (98-108); Estimated CRCL calculation 140 ml/min; Estimated Glomerular Filt Rate > 60; Glucose 121 mg/dL (70-99); Lipase 51 U/L (73-393); Osmolality Calculated 291 mOsm/kg (285-295); Potassium 3.3 mmol/L (3.5-5.1); Sodium 140 mmol/L (136-145); Total Protein 7.5 g/dL (6.4-8.2)
[2020-09-07] MEDS: ONDANSETRON HCL ODT 4 MG TABLET PO (12:55)
[2020-09-07] MEDS: KETOROLAC (*BKC) 60 MG/2 ML VIAL IM (13:20)
[2020-09-07 13:39] LABS: Amylase 39 U/L (25-115)
[2020-09-07 13:50] LABS: Amphetamine Screen Urine Negative (Negative); Barbiturate Screen Urine Negative (Negative); Benzodiazepines Screen Urine Negative (Negative); Cannabinoid Screen Urine Positive (Negative); Cocaine Screen Urine Negative (Negative); Methadone Screen Urine Negative (Negative); Opiate Screen Urine Negative (Negative); Phencyclidine Screen Urine Negative (Negative)
[2020-09-07] MEDS: SODIUM CHLORIDE 0.9% IV 1,000 ML 999 ML IV CONT ×2 (14:08→14:53)
[2020-09-07] MEDS: PROMETHAZINE HCL 25 MG/ML AMPUL 12.5 MG IV PUSH (14:28)
[2020-09-07 16:13] VITALS: BP 138/96; PULSE 78; RESP 20; TEMP 36.7; O2SAT 98
== END 2020-09-07 16:47 | disposition home or self-care (01) ==
PROVIDERS: Emergency Provider Emergency Medicine; PCP Family Medicine
DX: R11.10 Vomiting, unspecified (principal); F12.920 Cannabis use, unspecified with intoxication, uncomplicated
CPT/HCPCS: 36415; 80053; 80307; 82150; 83690; 85025; 86140; 96361; 96372; 96374; 99283; 99284; A9270; J1885; J2550; J7030

== ENCOUNTER 2021-11-11 12:47 | Outpatient (RCR) | payer OTHER, SELFPAY ==
[2021-11-11 13:00] VITALS: BMI 42.0
--- NOTE | 2021-11-18 13:51 | PCWOUND ---
WOCN NOTE patient did not show up for appointment, left message.
== END 2022-01-04 08:42 | disposition home or self-care (01) ==
LOC: ANHWOC 12:47
PROVIDERS: PCP Nurse Practitioner Family; Visit Provider Nurse Practitioner Family
DX: S81.819D Laceration without foreign body, unspecified lower leg, subsequent encounter (principal)
CPT/HCPCS: 99213; A9270; G0463

== ENCOUNTER 2022-12-19 12:23 | Emergency (ER) | payer OTHER, SELFPAY ==
[2022-12-19 12:30] VITALS: BP 137/89; PULSE 82; RESP 18; TEMP 37.1; O2SAT 96
--- NOTE | 2022-12-19 12:50 | ED.GENADULT ---
HPI - General Adult General Chief complaint: Skin/Abscess/Foreign Body Stated complaint: spider bite Tuesday evening, L leg Time Seen by Provider: 12/19/22 12:28 History of Present Illness HPI narrative: 37-year-old male presenting with spider bite. Patient states he was bitten by a spider approximately 2 days ago. He states he was putting on a pair pants and felt a bite on his left thigh. He presents with small area of erythema to the left anterior thigh. He denies any other injury, recent illnesses or fevers. Onset (ago): day(s) Location: lower extremity Related Data Allergies Allergy/AdvReac Type Severity Reaction Status Date / Time No Known Allergies Allergy Verified 11/09/21 13:47 PMFSH Past Medical History Medical History Addiction, marijuana Adynamic ileus Cannabis hyperemesis syndrome concurrent with and due to cannabis abuse Chondrolysis of left hip High risk medication use History of pancreatitis Lumbago with sciatica Skin abscess Syncope Surgical History Surgical History Hx of cholecystectomy Family History Family History Mother COPD (chronic obstructive pulmonary disease) Social History Social History Smoking packs per day: 1 Smoking cigarettes per day: 20.0 Years smoked: 20 Smoking pack-years: 20.00 Smoking status: Current every day smoker Tobacco type: cigarettes Alcohol intake: never Substance use: unknown Substance use type: marijuana Last use: 08-06-20 Living arrangements: with family Gender identity (if verbalized by the patient): Male Sexual Orientation (if Verbalized by the Patient): Straight or Heterosexual Spiritual care concerns: No Exam Const: General: cooperative and healthy appearing HENMT: Head: normal to inspection and normocephalic Ears: hearing grossly normal bilaterally and external ears normal Face/Nose/Sinus: Normal external nose present and Normal nares present Face and sinus: normal facial exam and face symmetric Mouth: Yes Normal oral and palatal mucosa present and Yes lip normal Eyes: General: appearance normal, both eyes and all related structures Alignment and Position: alignment normal Neck: Neck: normal visual inspection and full ROM Chest: Chest palpation & inspection: normal inspection of the chest and no localized rib tenderness Resp: Effort & Inspection: normal respiratory effort and able to speak in complete sentences Cardio: Jugular venous distension: no JVD Rate: regular rate GI: Inspection: normal to inspection GI Palp: No abdominal tenderness Back/Spine/Pelvis: Back: no CVA tenderness Cervical Spine: cervical ROM normal Skin: General skin exam: normal color and lesion ( Small approximately 2-3 cm circular lesion to the anterior left thigh. ) Other: Anterior thigh lesion with mild erythema. Mildly tender. No drainage. No evidence of hemorrhaging or necrosis. Neuro: General: patient oriented x3 Cognition (Neuro): normal cognition Speech: normal speech Extrem: General: normal to inspection and full ROM Psych: Appearance: grossly normal Mental Status: mental status grossly normal Course Vital Signs Vital signs: Vital Signs Temperature 37.1 C 12/19/22 12:30 Pulse Rate 82 12/19/22 12:30 Respiratory Rate 18 12/19/22 12:30 Blood Pressure 137/89 12/19/22 12:30 Pulse Oximetry 96 12/19/22 12:30 Oxygen Delivery Room Air 12/19/22 12:30 Temperature 37.1 C 12/19/22 12:30 Pulse Rate 82 12/19/22 12:30 Respiratory Rate 18 12/19/22 12:30 Blood Pressure 137/89 12/19/22 12:30 Pulse Oximetry 96 12/19/22 12:30 Oxygen Delivery Room Air 12/19/22 12:30 Medical Decision Making MDM Narrative Medical decision making narrati
[2022-12-19] MEDS: KETOROLAC 30 MG/ML VIAL (*BKC) IM (13:06)
--- NOTE | 2022-12-19 13:38 | ED.GENADULT ---
HPI - General Adult General Chief complaint: Skin/Abscess/Foreign Body Stated complaint: spider bite Tuesday evening, L leg Time Seen by Provider: 12/19/22 12:28 History of Present Illness Location: lower extremity Related Data Allergies Allergy/AdvReac Type Severity Reaction Status Date / Time No Known Allergies Allergy Verified 11/09/21 13:47 [facility] Past Medical History Medical History Addiction, marijuana Adynamic ileus Cannabis hyperemesis syndrome concurrent with and due to cannabis abuse Chondrolysis of left hip High risk medication use History of pancreatitis Lumbago with sciatica Skin abscess Syncope Surgical History Surgical History Hx of cholecystectomy Family History Family History Mother COPD (chronic obstructive pulmonary disease) Social History Social History Smoking packs per day: 1 Smoking cigarettes per day: 20.0 Years smoked: 20 Smoking pack-years: 20.00 Smoking status: Current every day smoker Tobacco type: cigarettes Alcohol intake: never Substance use: unknown Substance use type: marijuana Last use: 08-06-20 Living arrangements: with family Gender identity (if verbalized by the patient): Male Sexual Orientation (if Verbalized by the Patient): Straight or Heterosexual Spiritual care concerns: No Course Vital Signs Vital signs: Vital Signs Temperature 37.1 C 12/19/22 12:30 Pulse Rate 82 12/19/22 12:30 Respiratory Rate 18 12/19/22 12:30 Blood Pressure 137/89 12/19/22 12:30 Pulse Oximetry 96 12/19/22 12:30 Oxygen Delivery Room Air 12/19/22 12:30 Temperature 37.1 C 12/19/22 12:30 Pulse Rate 82 12/19/22 12:30 Respiratory Rate 18 12/19/22 12:30 Blood Pressure 137/89 12/19/22 12:30 Pulse Oximetry 96 12/19/22 12:30 Oxygen Delivery Room Air 12/19/22 12:30 Medical Decision Making Vital Signs Vital Signs: Vital Signs Temperature 37.1 C 12/19/22 12:30 Pulse Rate 82 12/19/22 12:30 Respiratory Rate 18 12/19/22 12:30 Blood Pressure 137/89 12/19/22 12:30 Pulse Oximetry 96 12/19/22 12:30 Oxygen Delivery Room Air 12/19/22 12:30 Temperature 37.1 C 12/19/22 12:30 Pulse Rate 82 12/19/22 12:30 Respiratory Rate 18 12/19/22 12:30 Blood Pressure 137/89 12/19/22 12:30 Pulse Oximetry 96 12/19/22 12:30 Oxygen Delivery Room Air 12/19/22 12:30 Discharge Plan Discharge Clinical Impression: Accidental spider bite Cellulitis Qualifiers: Site of cellulitis: extremity Site of cellulitis of extremity: lower extremity Laterality: left Qualified Code(s): L03.116 - Cellulitis of left lower limb Patient Disposition: Home, Self-Care Condition: Stable Instructions: Antibiotic Form, Cellulitis (ED) Additional Instructions: monitor your sign of concern for any signs of increased swelling, increased pain, increased discoloration or any other symptoms that concern you. Take antibiotic as prescribed give after it to completion. Follow up with your primary care physician for wound recheck. Return to emergency department for any concerns. Prescriptions: New doxycycline monohydrate 100 mg capsule 100 mg PO BID Qty: 20 0RF ketorolac 10 mg tablet 10 mg PO Q6H PRN (Reason: pain) 3 Days Qty: 7 0RF doxycycline monohydrate 100 mg capsule 100 mg PO BID Qty: 20 0RF No Action hydrocodone-acetaminophen 5-325 mg tablet 1 tablet PO Q8H PRN (Reason: pain) Qty: 26 0RF amoxicillin-pot clavulanate 875-125 mg tablet 1 tablet PO BID Qty: 20 0RF Follow-up/Referrals: Bev Morris NP [Primary Care Provider] - Stand Alone Forms: Work/School Release IP
== END 2022-12-19 13:40 | disposition home or self-care (01) ==
PROVIDERS: Emergency Provider Emergency Medicine; PCP Nurse Practitioner Family
DX: L03.116 Cellulitis of left lower limb (principal); T63.301A Toxic effect of unspecified spider venom, accidental (unintentional), initial encounter; F17.210 Nicotine dependence, cigarettes, uncomplicated
CPT/HCPCS: 96372; 99283; J1885

== ENCOUNTER 2022-12-22 11:45 | Outpatient (CLI) | payer OTHER, SELFPAY ==
--- NOTE | ~2022-12-22 | US_ITS ---
EXAMINATION: US soft tissue LE LT DATE: 12/22/2022 12:25 INDICATION: Left lower limb spider bite with infection. TECHNIQUE: Multiple grayscale and Doppler ultrasound images of the left lower limb were obtained. COMPARISON: None FINDINGS: There is hyperechoic subcutaneous fat in the patient's area of concern. No abscess. IMPRESSION: 1. Hyperechoic subcutaneous fat in the patient's area of concern, consistent with inflammation. No ab scess. Reviewed, dictated and finalized at location B. IMPRESSION: 1. Hyperechoic subcutaneous fat in the patient's area of concern, consistent wi th inflammation. No abscess.
[2022-12-22 12:00] LABS: Basophils Absolute Auto 0.03 K/mm3 (0.00-0.10); Basophils Percent Auto 0.3 % (0.0-1.0); Eosinophils Absolute Auto 0.18 K/mm3 (0.02-0.50); Eosinophils Percent Auto 2.1 % (1.0-6.0); Hematocrit 45.7 % (40.0-54.0); Hemoglobin 15.4 g/dL (14.0-18.0); Immature Granulocyte Absolute 0.04 K/mm3 (0.00-0.00); Immature Granulocyte Percent A 0.5 % (0.0-0.0); Lymphocytes Absolute Auto 1.81 K/mm3 (1.10-4.50); Lymphocytes Percent Auto 20.6 % (18.0-42.0); Mean Corpuscular HGB Conc 33.7 g/dL (32.0-36.0); Mean Corpuscular Hemoglobin 29.7 pg (27.0-31.0); Mean Corpuscular Volume 88.2 fL (78.0-102.0); Mean Platelet Volume 9.9 fl (8.7-11.0); Monocytes Absolute Auto 0.56 K/mm3 (0.10-0.90); Monocytes Percent Auto 6.4 % (2.0-11.0); Neutrophils Absolute Auto 6.2 K/mm3 (1.7-7.2); Neutrophils Percent Auto 70.1 % (50.0-70.0); Platelet Count Result 279 K/mm3 (150-420); Red Blood Count 5.18 M/mm3 (4.70-6.10); White Blood Count 8.8 K/mm3 (4.8-10.8)
[2022-12-22 12:16] LABS: Alanine Aminotransferase 35 U/L (16-63); Albumin Level 3.5 g/dL (3.4-5.0); Alkaline Phosphatase 117 U/L (46-116); Anion Gap 9 mmol/L (8-16); Aspartate Amino Transferase 10 U/L (15-37); Bilirubin,Total 0.4 mg/dL (0.00-1.00); Blood Urea Nitrogen 11 mg/dL (7-18); Calcium 8.6 mg/dL (8.5-10.1); Carbon Dioxide 28 mmol/L (21-32); Chloride 105 mmol/L (98-108); Estimated Glomerular Filt Rate > 60; Glucose 121 mg/dL (70-99); Lactate Dehydrogenase 161 U/L (85-227); Osmolality Calculated 294 mOsm/kg (285-295); Potassium 3.3 mmol/L (3.5-5.1); Sodium 142 mmol/L (136-145); Total Protein 7.7 g/dL (6.4-8.2)
== END 2022-12-22 11:46 | disposition home or self-care (01) ==
LOC: CHSLAB 11:47
PROVIDERS: PCP Family Medicine; Visit Provider Nurse Practitioner Family
DX: L03.90 Cellulitis, unspecified (principal); T63.331A Toxic effect of venom of brown recluse spider, accidental (unintentional), initial encounter
CPT/HCPCS: 36415; 76882; 80053; 83615; 85025

== ENCOUNTER 2022-12-22 22:30 | Emergency (ER) | payer OTHER, SELFPAY ==
[2022-12-22 22:33] VITALS: BP 154/73; PULSE 90; RESP 20; TEMP 37.2; O2SAT 96
--- NOTE | 2022-12-22 22:33 | ED.SKABFB ---
HPI - Skin/Abscess/Foreign Bdy General Chief complaint: Animal Bite Stated complaint: bug bite Source: patient Mode of arrival: ambulatory History of Present Illness HPI narrative: 37-year-old male, smoker with marijuana use, cyclic vomiting syndrome, pancreatitis, yet a car /tobacco spider bite on left anterior thigh on 12/17/2022. He presented to the and subsequently to his primary care physician today. The patient had blood work which revealed a normal white cell count. The patient had an ultrasound of his left anterior thigh which revealed left anterior thigh inflammation without any evidence of abscess. The patient is on Keflex and doxycycline but has worsening left anterior cellulitis. He presents to the ER with -- severe pain in the left anterior thigh. MD complaint: other ( Left anterior thigh cellulitis) Onset (ago): day(s) ( presents for the past 4 days) Tetanus up to date: yes Location: LLE ( left anterior thigh-- erythema around the bite site measuring 10 cm.) Severity: mild Quality: aching Pain Consistency: constant Relieving factors: none Exacerbating factors: none Associated symptoms: denies other symptoms Treatments prior to arrival: antibiotic ( Patient is on Keflex doxycycline) Related Data Allergies Allergy/AdvReac Type Severity Reaction Status Date / Time No Known Allergies Allergy Verified 12/22/22 11:20 Review of Systems Review of Systems: All systems reviewed & are unremarkable except as noted in HPI and below Constitutional: Constitutional: Reports as per HPI and Reports no additional constitutional complaints Eyes: Eyes: Reports as per HPI and Reports no additional eye complaints ENT: Reports system reviewed and no additional complaints, except as documented and Reports as per HPI Cardiovascular: Cardiovascular: Reports as per HPI and Reports no additional cardiovascular complaints Respiratory: Respiratory: Reports as per HPI and Reports no additional respiratory complaints Gastrointestinal: Gastrointestinal: Reports as per HPI and Reports no additional gastrointestinal complaints Genitourinary: Genitourinary: Reports no additional male genitourinary complaints and Reports as per HPI Musculoskeletal: Musculoskeletal: Reports no additional musculoskeletal complaints and Reports as per HPI Integumentary/Breasts: Skin/Breast: Reports system reviewed and no additional complaints, except as docu Comments: left anterior cellulitis. No skin breakdown. No discharge Neurologic: Reports system reviewed and no additional complaints, except as documented and Reports as per HPI Psychiatric: Psychiatric: Reports no additional psychiatric complaints and Reports as per HPI Endocrine: Endocrine: Reports no additional endocrine complaints and Reports as per HPI Hematologic/Lymphatic: Hematologic/Lymphatic: Reports no additional hematologic/lymphatic complaints and Reports as per HPI Allergic/Immunologic: Allergic/Immunologic: Reports no additional allergic/immunologic complaints and Reports as per HPI PMFSH Past Medical History Medical History Addiction, marijuana Adynamic ileus Cannabis hyperemesis syndrome concurrent with and due to cannabis abuse Chondrolysis of left hip High risk medication use History of pancreatitis Lumbago with sciatica Skin abscess Syncope Surgical History Surgical History Hx of cholecystectomy Family History Family History Mother COPD (chronic obstructive pulmonary disease) Social History Social History Smoking packs per day: 1 Smoking cigarettes per day: 20.0 Years smoked: 20 Smoking pack-years: 20.00 Smoking status: Current every day smoker Tobacco type: cigarettes Alcohol intake: never Substance use: unknown [facility]
[2022-12-22] MEDS: ONDANSETRON HCL ODT 4 MG TABLET PO (23:09)
[2022-12-22] MEDS: HYDROmorphone HCL INJ (*CRX) 2 MG/ML VIAL 1 MG IM (23:09)
--- NOTE | 2022-12-22 23:17 | PC.NURSE ---
2300 WITH CHILD AT WINDOW SCREAMING WE WANT TO BE WITH MY , ENC TO BE IN WAITING ROOM DUE TO SIZE OF ROOM AND ER FULL, CONT TO BE LOUD & RUDE, SENT TO ROOM WITH PATIENT
[2022-12-22 23:27] VITALS: BP 140/88; PULSE 80; RESP 18; TEMP 37; O2SAT 98
== END 2022-12-22 23:30 | disposition home or self-care (01) ==
PROVIDERS: Emergency Provider Internal Medicine Critical Care Medicine; PCP Family Medicine
DX: L03.116 Cellulitis of left lower limb (principal); T63.301A Toxic effect of unspecified spider venom, accidental (unintentional), initial encounter; F17.210 Nicotine dependence, cigarettes, uncomplicated; Z90.49 Acquired absence of other specified parts of digestive tract
CPT/HCPCS: 96372; 99283; A9270; J1170